=== PATIENT | female | born 1960 | race Caucasian/White ===

== ENCOUNTER → 2016-10-26 | Outpatient (CLI) | payer OTHER ==
[~2016-10-26] VITALS: Ht 167.6 cm; Wt 98.3 kg
[~2016-10-26] MED LIST: ALEVE220 MG PO; AMITRIPTYLINE H10 M1 PO; AMITRIPTYLINE H50 M2 PO; ANCEF 1GM1 GM/50 M1 IV; ARTHRITIS PAIN650 M2 PO; CALTRATE 600 +1 EACH PO; CELEBREX; CYCLOBENZAPRINE10 MG PO; DESYREL50 MG PO; ENDOCET 10-3251 EACH PO; FENTANYL PA25 MCG/HR TP; FENTANYL PA50 MCG/HR TP; FLEXERIL PO; HYDROCODON-ACE1 EACH PO; IBUPROFEN 200200 M1 PO; LOVENOX; MAXALT MLT ODT10 MG PO; MS CONTIN 30 MG30 M1 PO; MS CONTIN15 MG PO; MS CONTIN30 MG PO; MULTIVITAMINS1 EAC7 PO; NABUMETONE 500500 M1 PO; OXYCODONE-ACET1 EAC2 PO; OXYCODONE-APAP1 EAC6 PO; OXYCONTIN10 MG PO; PERCOCET 10-321 EACH PO; PERCOCET 5-3251 EACH PO; PERCOCET 7.5-31 EACH PO; PERCOCET PO; PHENERGAN 25 MG25 M1 PO; RELAFEN500 MG PO; ROXICODONE5 MG PO; TYLENOL EX-STR500 M2 PO; VITAMIN D 5050000 I1 PO; XANAX 0.25 MG0.25 MG PO
--- NOTE | ~2016-10-26 | HPC ---
[facility] [place] [address] PAIN MANAGEMENT CONSULTATION Name: LEELEE ANGLIN [id number] Admission: 10/26/16 Attend Phys: Raj Beasley DO Discharge: Date of : 58 Report #: [id number] THIS REPORT FOR: //name// CC: FAM physician/PCP Raj Horowitz DO DATE OF SERVICE: 10/26/2016 REFERRING PHYSICIAN: Sarah Horowitz DO. CHIEF COMPLAINT: Neck pain, head pain, new onset intense left intracranial head pain. HISTORY OF PRESENT ILLNESS: As you know, the patient is a 55-year-old female, who returns today in followup visit with continued cervicogenic headache, due to extensive cervical spondylosis, leading to third occipital neuralgia. The patient has peripheral nerve stimulators in place which have been providing improvement in symptoms. This in conjunction with medication management has been relatively successful in alleviating the majority of the patient's pain. The patient states, over the past couple of weeks, she is beginning to experience increasing head pain. This head pain is different than her typical head pain. It is deep and intracranial. She reports it behind the eye, and exacerbated with no activities. She has had no resolution of symptoms, and the pain has become so intense that she was actually heading to the Emergency Department today. She happened to have an appointment with us and came to our clinic instead. She is placing pain score today at "20/10". She denies any injury or trauma to her head that may have led to these symptoms. She has made today's appointment for medication management, but with his head pain, she is most concerned about this new onset. ALLERGIES: ZOLPIDEM. CURRENT MEDICATIONS: Percocet 7.5/325 four times a day p.r.n. pain, MS Contin 30 mg twice a day, amitriptyline 50 mg p.o. at bedtime, multivitamin 1 tab per day, Tylenol Arthritis 650 mg 2 tabs 3 times a day. SOCIAL HISTORY: The patient denies tobacco, alcohol, IV or illicit drug use. She is working, not receiving workmen's compensation. She is unaccompanied today. IMAGING: No new imaging available. PHYSICAL EXAMINATION: VITAL SIGNS: Blood pressure 112/72, pulse 79, respiratory rate 16, unlabored. The patient is 100% on room air, height 5 feet 6 inches tall, weight 216 pounds, [facility] [address] [place] [address] PAIN MANAGEMENT CONSULTATION Name: LEELEE ANGLIN [id number] Admission: 10/26/16 Attend Phys: Raj Beasley DO Discharge: Date of : 58 Report #: [id number] BMI calculated 35. GENERAL: Well-developed, well-nourished, and well-hydrated. Morbidly obese 55-year-old female, appears her stated age. She is in acute distress. Placing pain score 20/10. HEENT: Normocephalic and atraumatic. Pupils are equal, round, and reactive to light. Extraocular muscles are intact. Speech is fluent. NEUROLOGIC: Cranial nerves 2-12 are grossly intact. LUNGS: Clear. No wheezing, rhonchi, or rales. CARDIOVASCULAR: Regular. No appreciable gallop or rub. ABDOMEN: Soft, obese, nontender, and nondistended. EXTREMITIES: Show no clubbing, no cyanosis, no edema. MUSCULOSKELETAL: Palpatory tenderness is noted over the paraspinal musculature of the cervical spine, unchanged from previous evaluations. Cervical provocation testing causes intensification of pain in typical distribution. No change in her new onset of pain, deep left intracranial area. Cervical provocation testing with extension, rotation, and lateral flexion is met with decreasing mobility. There is well healed surgical scar is noted. ASSESSMENT: 1. Bilateral third occipital neuralgia. 2. Cervical facet syndrome. 3. Cervicalgia. 4. Cervicogenic headache. 5. New onset intracranial head pain. 6. Chronic intractable pain. PLAN: 1. The patient returns today in followup visit with increasing head pain located left side, retroorbital, deep in the head in sensation. The patient has known third occipital neuralgia, secondary to cervicogenic headaches and cervical spondylosis. Though this symptomology is different than her typical head pain, it is not superficial. It is very deep in the head. The patient indicates pain has become worse. It is not improving. Her symptoms are becoming profound enough that she was heading to the Emergency Department, but deviated to our office as she did have an appointment with us today. Given the findings in her report, I do feel that further evaluation is necessary. I recommended the patient to undergo a CT of the head without contrast. I am concerned about potential intracranial issues. The symptoms she is experiencing do not correlate with her typical third occipital neuralgia and cervicogenic headache. The patient will undergo CT examination without contrast, as quickly as possible. We will review the findings once they are available. I did advise the patient that if she undergoes the CT today, and continues to have increasing pain, but has not heard back from our clinic, and pain does not resolve, she is to take herself to the Emergency Department here at [facility] where they can evaluate more fully and review the CT in its entirety. 2. I have written the patient's typical pain medications today. The following [facility] [place] [address] [place] [address] PAIN MANAGEMENT CONSULTATION Name: LEELEE ANGLIN Room #: REG [facility]#: [id number] Admission: 10/26/16 Attend Phys: Raj Beasley DO Discharge: Date of : 58 Report #: [id number] was written for 3 months prescriptions. 3. The patient was provided a prescription of MS Contin 30 mg dose one tab p.o. b.i.d. I have given the patient #60, releases of today, 4 weeks from today, and 8 weeks from today. 4. The patient was provided a prescription of amitriptyline 50 mg dose, 2 tabs p.o. at bedtime. I have given her #60 with 2 refills. 5. The patient was provided a prescription of oxycodone/acetaminophen 7.5/325, one tab p.o. q. 6 hours p.r.n. for pain, #120 releases of today, 4 weeks from today, and 8 weeks from today. 6. The patient can contact our clinic later today for findings from the CT examination. Again, if the patient does not notice resolution of symptoms or her pain becomes worse or if she begins to have any potential neurologic deficits, she is to take herself to the Emergency Department immediately for further evaluation. 7. I have discussed with the patient. There is a possibility that she will need adjustment on her peripheral nerve stimulator. She will need to contact Dr. Viktor Rosario's office to establish an appointment, so that they can have adjustments made with the [employer] representatives. By: [id number] Raj Beasley DO /nt
[2016-10-26 11:04] VITALS: BP 112/72
== END | disposition home or self-care (01) ==
LOC: CAT 07:06 → PAIN 07:06
DX: M54.81 Occipital neuralgia (principal); M53.82 Other specified dorsopathies, cervical region; G44.89 Other headache syndrome; G89.29 Other chronic pain

== ENCOUNTER → 2017-01-25 | Outpatient (CLI) | payer OTHER ==
[~2017-01-25] VITALS: Ht 167.6 cm; Wt 95.7 kg
[2017-01-25 08:43] VITALS: BP 125/72
== END | disposition home or self-care (01) ==
LOC: PAIN 07:19
DX: M54.81 Occipital neuralgia (principal); M53.82 Other specified dorsopathies, cervical region; M54.2 Cervicalgia; G44.89 Other headache syndrome; G44.209 Tension-type headache, unspecified, not intractable; F11.20 Opioid dependence, uncomplicated; G89.29 Other chronic pain; Z88.8 Allergy status to other drugs, medicaments and biological substances; Z98.890 Other specified postprocedural states

== ENCOUNTER → 2017-04-26 | Outpatient (CLI) | payer OTHER ==
[~2017-04-26] VITALS: Ht 167.6 cm; Wt 94.3 kg
--- NOTE | ~2017-04-26 | HPC ---
[facility] [address] [place] [address] PAIN MANAGEMENT CONSULTATION Name: LEELEE ANGLIN Room #: REG [facility].#: [id number] Admission: 04/26/17 Attend Phys: Raj Beasley DO Discharge: Date of : 58 Report #: [id number] THIS REPORT FOR: //name// CC: [facility] physician/PCP Raj DUENAS DATE OF SERVICE: 04/26/2017 CHIEF COMPLAINT: Head pain and neck pain. HISTORY OF PRESENT ILLNESS: As you know, the patient is a 56-year-old female who returns today in followup visit for medication management to address her cervicalgia, cervicogenic headache, tension headache and third occipital neuralgia. The patient states medications are working beneficially despite the fact that she is providing a pain score today of 7/10; states pain is stabbing, sharp and tender; exacerbated with loud noises; lights and movement. She returns today requesting refill on medications at current dosing, denying side effects with their use. ALLERGIES: ZOLPIDEM. CURRENT MEDICATIONS: Percocet 7.5/325 four times a day, MS Contin 15 mg 3 times a day, amitriptyline 100 mg p.o. at bedtime, multivitamin 1 tab per day, Tylenol Arthritis 650 mg 2 tabs 3 times a day. SOCIAL HISTORY: The patient denies tobacco, alcohol, IV or illicit drug use. She is recently retired. She is unaccompanied today. IMAGING: No new imaging available. PHYSICAL EXAMINATION: VITAL SIGNS: Blood pressure 125/72, pulse 65, respiratory rate 14 and unlabored. The patient is 98% on room air. Height 5 feet 6 inches tall, weight 211 pounds, BMI calculated 34.1. GENERAL: Well-developed, well-nourished, well-hydrated exogenously obese 56-year-old female appearing stated age, placing current pain score 7/10. HEENT: Normocephalic, atraumatic. Pupils equal, round, reactive to light. Extraocular muscles are intact. Speech is fluent. EXTREMITIES: Show no clubbing, no cyanosis, no edema. MUSCULOSKELETAL: Tenderness to palpation is again noted over the paraspinal musculature of cervical spine, well-healed surgical scars. There is palpatory tenderness over what appears to be one of the leads on the right that is palpable through the skin of the cervical musculature. Cervical provocation is met with increasing pain. [address] [address] PAIN MANAGEMENT CONSULTATION Name: LEELEE ANGLIN Room #: REG CLI [facility]#: [id number] Admission: 04/26/17 Attend Phys: Raj Beasley DO Discharge: Date of : 58 Report #: [id number] ASSESSMENT: 1. Bilateral third occipital neuralgia. 2. Cervical facet syndrome. 3. Cervicalgia. 4. Cervicogenic headache. 5. Chronic intractable pain. PLAN: 1. The patient returns today in followup visit for refills of medications. She does relay information about a misplaced prescription from our last prescription released at 8 weeks from prescriptions provided at our appointment of 01/25/2017. The patient subsequently found these prescriptions and ultimately filled the medication. I have advised the patient that with any prescription she needs to safeguard the prescriptions as well as the medications from lost or being stolen. It is the patient's responsibility to monitor these controlled substances once they have been filled, but also to monitor the prescriptions themselves as they can be filled by nefarious individuals and can be diverted for illegal use. The patient states she understands and has made a contingency plan at home to secure the prescriptions in a very specific place. 2. The patient was provided today prescription of MS Contin 15 mg 3 times a day. I have given the patient #90, releases of today, 4 weeks from today, 8 weeks from today. This will be the baseline medication. Again, the patient is advised to safeguard the prescriptions and the medications once they have been obtained. 3. The patient was provided a prescription of Percocet 7.5/325 one tab every 6 hours p.r.n. for pain, #120, releases of today, 4 weeks from today, 8 weeks from today, 3 months' worth of medication. Again, the patient was advised to safeguard her prescriptions and the medications once they have been obtained. 4. The patient was provided a prescription of amitriptyline 50 mg dose 2 tabs p.o. at bedtime, #60, two refills, 3 months' worth of medication. 5. We will see the patient back in followup visit in 3 months for medication management, earlier if interventional treatments are necessary. By: [id number] Raj Beasley DO /zack
[2017-04-26 08:12] VITALS: BP 135/91
== END | disposition home or self-care (01) ==
LOC: PAIN 06:51
DX: M54.81 Occipital neuralgia (principal); M53.1 Cervicobrachial syndrome; M54.2 Cervicalgia; G89.29 Other chronic pain; Z68.34 Body mass index [BMI] 34.0-34.9, adult; Z88.8 Allergy status to other drugs, medicaments and biological substances

== ENCOUNTER → 2017-07-25 | Outpatient (CLI) | payer OTHER ==
[~2017-07-25] VITALS: Ht 167.6 cm; Wt 91.4 kg
--- NOTE | ~2017-07-25 | HPC ---
[facility] [address] [address] PAIN MANAGEMENT CONSULTATION Name: LEELEE ANGLIN Room #: REG [facility]..#: [id number] Admission: 07/25/17 Attend Phys: Raj Beasley DO Discharge: Date of : 58 Report #: [id number] THIS REPORT FOR: //name// CC: FAM physician/PCP Raj Horowitz DO DATE OF SERVICE: 07/25/2017 REFERRING PHYSICIAN: Sarah Horowitz D.O. CHIEF COMPLAINT: Head pain and neck pain. HISTORY OF PRESENT ILLNESS: As you know, the patient is a 56-year-old female who returns today in followup visit for continued medication management. She feels combinations of medications along with a peripheral nerve stimulators providing some improvement in symptoms. Unfortunately, the patient is now experiencing trouble with her peripheral nerve stimulator battery. She is not receiving response stating the battery is depleted. She is also experiencing left upper extremity pain with paresthesias radiating all the way into the hand. Pain begins in the neck, radiates to the shoulder and then down into the hand. She reports no injury or trauma that may have led to this symptom development. She returns to discuss options for treatment. ALLERGIES: ZOLPIDEM. CURRENT MEDICATIONS: Percocet 7.5/325 four times a day p.r.n., MS Contin 15 mg 3 times a day, amitriptyline 100 mg once a day, multivitamin 1 tab per day and Tylenol Arthritis 650 mg 2 tabs 3 times a day. SOCIAL HISTORY: The patient denies tobacco, alcohol, IV or illicit drug use. She is retired. She is unaccompanied today. IMAGING DATA: No new imaging available. PHYSICAL EXAMINATION: VITAL SIGNS: Blood pressure 108/64, pulse 72, respiratory rate 14 and unlabored. The patient is 97% on room air. Height 5 feet 6 inches tall, weight 201.4 pounds and BMI calculated 32.5. GENERAL: Well-developed, well-nourished, well-hydrated 56-year-old female appearing her stated age. She is in mild distress secondary to pain, placing current pain score at 6/10. HEENT: Normocephalic and atraumatic. Pupils equal, round and reactive to light. Extraocular muscles are intact. NEUROLOGICAL: Speech is fluent. The patient deemed a good historian. EXTREMITIES: Show no clubbing, no cyanosis and no edema. [address] [address] PAIN MANAGEMENT CONSULTATION Name: LEELEE ANGLIN [facility] [id number] Admission: 07/25/17 Attend Phys: Raj Beasley DO Discharge: Date of : 58 Report #: [id number] MUSCULOSKELETAL: The patient does display a positive Spurling's test on the left, negative right. There is palpatory tenderness over the paraspinal musculature cervical spine. No spinous process tenderness. Upper extremity strength appears equal and symmetrical, 5/5. She is intact to light touch from C5 to T1 dermatomes with mild loss of tactile sensation and per the patient's report in the distal portions of the C6 and C7 dermatomal distribution on the left compared to the right. ASSESSMENT: 1. Cervical radiculopathy. 2. Bilateral third occipital neuralgia. 3. Cervical facet syndrome. 4. Cervicalgia. 5. Cervicogenic headache. 6. Chronic intractable pain. PLAN: 1. The patient returns today in followup visit reporting what appears to be cervical radiculopathy involving the low neck, left upper extremity all the way into the hand on what appears to be C6 dermatome possibly even additional C7 dermatome. The patient does have a well known cervical facet arthropathy that is likely leading to either neural foraminal stenosis or central canal stenosis and needs to be further evaluated. We discussed that the patient the options for treatment for cervical radiculopathy. These would include physical therapy, stretching exercise and core strengthening. We discussed medication management for which the patient is currently receiving. We discussed epidural injections and surgical options. After reviewing risks and benefits of all proposed treatment options, the patient chose to move forward with imaging to determine the possible pathology and what then can be determined it is a more directed treatment course. 2. The patient was sent for CT examination of the cervical region. The patient will undergo the CT examination as quickly as possible. We will review the findings once they are available. The patient can contact the clinic about the findings at her earliest convenience. 3. The patient has reported issues with her peripheral stimulator battery. I have advised the patient to contact the [employer] inside outside sales representative to have the device evaluated. If a battery is depleted, she will need to follow up with Dr. Rosario for exchange of battery. The patient will contact the inside outside sales representative immediately and follow up with Dr. Rosario as necessary. 4. The patient was provided prescription of amitriptyline 50 mg dose 2 tabs p.o. at bedtime, #60, two refills. 5. The patient was provided a prescription of MS Contin 15 mg dose 1 tab p.o. t.i.d., #90, 2 refills. 6. The patient was provided prescription of Percocet 7.5/325 one tab every 6 hours p.r.n. for pain, #120, releases of today, 4 weeks from today, 8 weeks from today, 3 months' worth of medication. [place] [address] [place] [address] PAIN MANAGEMENT CONSULTATION Name: LEELEE ANGLIN Room #: REG [facility]#: [id number] Admission: 07/25/17 Attend Phys: Raj Beasley DO Discharge: Date of : 58 Report #: [id number] 7. The patient and I discussed the need to safeguard medication. She is not having any side effects to medication, does feel they are beneficial. She needs to monitor medications carefully as these medications do have side effects that can occur without warning. 8. We will see the patient back in followup visit 3 months from today for medication management. She can contact our clinic about the findings from the CT examination and the options for treatment. <ELECTRONICALLY SIGNED> By: Raj Beasley DO 08/08/17 0900 1009 [id number] Raj Beasley DO /nt
[2017-07-25 08:14] VITALS: BP 108/64
== END ==
LOC: PAIN 06:46
DX: M54.12 Radiculopathy, cervical region (principal); G89.29 Other chronic pain; M54.81 Occipital neuralgia; M53.82 Other specified dorsopathies, cervical region

== ENCOUNTER → 2017-10-10 | Outpatient (CLI) | payer OTHER ==
[~2017-10-10] VITALS: Ht 167.6 cm; Wt 95.3 kg
--- NOTE | ~2017-10-10 | HPC ---
[facility] [place] [address] PAIN MANAGEMENT CONSULTATION Name: LEELEE ANGLIN Room #: REG [facility].#: [id number] Admission: 10/10/17 Attend Phys: Raj Beasley DO Discharge: Date of : 58 Report #: [id number] THIS REPORT FOR: //name// CC: FAM physician/PCP Raj Horowitz DO DATE OF SERVICE: 10/10/2017 REFERRING PHYSICIAN: Sarah Horowitz DO CHIEF COMPLAINT: Head and neck pain. HISTORY OF PRESENT ILLNESS: As you know, the patient is a very pleasant 56-year-old female who returns today in followup visit for medication management. The patient indicates that she has plans to undergo revision of her peripheral nerve stimulator for her ongoing head and neck pain. The patient is currently attempting to make an appointment with her neurosurgeon for adjustments in the device itself and the possibility of changing out the battery and pulse generator, which appears to be malfunctioning. She returns today requesting refill on medications. She is placing pain score today 5-6/10. States the light, loud noises, bending over, straining, answering the phone or turning her head the wrong way exacerbates symptoms. Medications, relaxation, environment changes, SCS and peripheral nerve stimulator seems to be working well. She returns today for medication management. ALLERGIES: ZOLPIDEM. CURRENT MEDICATIONS: Percocet 7.5/325 four times a day as needed for pain control, MS Contin 15 mg 3 times a day, amitriptyline 100 mg once a day, multivitamin 1 tab per day, Tylenol Arthritis 650 mg 2 tabs 3 times a day. SOCIAL HISTORY: The patient denies tobacco, alcohol, IV or illicit drug use. She was retired, but now has returned to the workforce. She is unaccompanied today. IMAGING: No new imaging available. PHYSICAL EXAMINATION: VITAL SIGNS: Blood pressure 124/76, pulse 62, respiratory rate 16, unlabored. The patient is 98% on room air. Height 5 feet 6 inches tall, weight 210 pounds, BMI calculated 33.9. GENERAL: Well-developed, well-nourished, well-hydrated 56-year-old female, appears stated age, placing current pain score 5-6/10. HEENT: Normocephalic, atraumatic. Pupils equal, round, reactive to light. EXTREMITIES: Show no clubbing, no cyanosis, no edema. [facility] [address] [place] [address] PAIN MANAGEMENT CONSULTATION Name: LEELEE ANGLIN [facility] [id number] Admission: 10/10/17 Attend Phys: Raj Beasley DO Discharge: Date of : 58 Report #: [id number] MUSCULOSKELETAL: There is some palpatory tenderness noted over the paraspinal musculature of the cervical spine. No spinous process tenderness. Positive Spurling's test on the left, negative right. There is reduction in motion of the cervical spine secondary to pain. She appears to be intact to cranial nerves 1-12. ASSESSMENT: 1. Cervical radiculopathy. 2. Third occipital neuralgia. 3. Cervical facet syndrome. 4. Cervicalgia. 5. Cervicogenic headache. 6. Chronic intractable pain. PLAN: 1. The patient returns today in followup visit indicating that she is in the process of returning to see Dr. Viktor Rosario. Apparently, a revision has to be made to release the pulse generator/battery pack for the peripheral nerve stimulator. There is also a possibility there needs to be some adjustments of the leads themselves. The patient is making an appointment with Dr. Rosario's office as quickly as possible. I did advise the patient if she needs assistance in being seen more rapidly, we will be more than willing to assess by contacting their clinic to see if we could facilitate a more rapid return for evaluation. The patient does have a [employer] device in, which we do not monitor or utilize. She would need to see Dr. Rosario for adjustments. 2. The patient has requested a refill on medications. She states medications are working beneficially despite the fact that she is providing a 5-6/10 pain level today. She has requested refills to be provided in hopes of continuation of pain control as we continue to adjust her peripheral nerve stimulator for better pain control. 3. The patient was provided a prescription of MS Contin 15 mg dose, 1 tab p.o. t.i.d. I have given the patient #90, releases of today, 4 weeks from today, 8 weeks from today. Total morphine equivalents 45. 4. The patient was provided a prescription of Percocet 7.5/325 one tab every 6 hours p.r.n. for pain. I have given the patient #120. Advised the patient to take the medication only as directed. She is not to take it more than 4 times a day. She was given prescriptions for 3 months. This use of medication calculates out to 45 morphine equivalents a day. 5. The patient was provided prescription of Elavil 50 mg dose 2 tabs p.o. at bedtime, #60, two refills. This is 3 months' worth of medication. 6. We will see the patient back in followup visit in 3 months. Hopefully, at that time, she will have her pulse generator replaced or adjusted and that the leads that she has in place are working more effectively and we can then begin reducing her reliance on opioids. I did discuss with the patient the recent CDC recommendations to begin the reduction from 90 morphine equivalents to the possibility of as low as 50 morphine equivalents. Guidelines have been [facility] [address] [place] [address] PAIN MANAGEMENT CONSULTATION Name: LEELEE ANGLIN Room #: REG [facility]#: [id number] Admission: 10/10/17 Attend Phys: Raj Beasley DO Discharge: Date of : 58 Report #: [id number] changed, but this is the report that we will be reducing by almost 50% at our next visit. <ELECTRONICALLY SIGNED> By: Raj Beasley DO 10/11/17 0747 [id number] Raj Beasley DO /nt
[2017-10-10 08:32] VITALS: BP 124/76
== END ==
LOC: PAIN 06:31
DX: M54.12 Radiculopathy, cervical region (principal); G89.4 Chronic pain syndrome; M54.81 Occipital neuralgia; R51 Headache

== ENCOUNTER → 2018-01-02 | Outpatient (CLI) | payer OTHER ==
[~2018-01-02] VITALS: Ht 167.6 cm; Wt 98.0 kg
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
[2018-01-02 08:14] VITALS: BP 144/93
== END ==
LOC: PAIN 07:28
DX: M54.2 Cervicalgia (principal); R51 Headache; G89.4 Chronic pain syndrome; M79.2 Neuralgia and neuritis, unspecified; Z79.899 Other long term (current) drug therapy

== ENCOUNTER → 2018-06-27 | Outpatient (CLI) | payer OTHER ==
[~2018-06-27] VITALS: Ht 167.6 cm; Wt 101.0 kg
[~2018-06-27] MED LIST changes: +CYMBALTA30 MG PO
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
[2018-06-27 08:14] VITALS: BP 129/86
== END | disposition home or self-care (01) ==
LOC: PAIN 06:56
DX: M79.18 Myalgia, other site (principal); M54.12 Radiculopathy, cervical region; M54.81 Occipital neuralgia; G89.29 Other chronic pain; Z88.8 Allergy status to other drugs, medicaments and biological substances; Z79.899 Other long term (current) drug therapy

== ENCOUNTER → 2018-09-18 | Outpatient (CLI) | payer OTHER ==
[~2018-09-18] VITALS: Ht 167.6 cm; Wt 103.1 kg
--- NOTE | ~2018-09-18 | HPC ---
[facility] [address] [place] [address] PAIN MANAGEMENT CONSULTATION Name: LEELEE ANGLIN Room #: REG [facility] MBrittany.#: [id number] Admission: 09/18/18 ������������������ Attend Phys: Raj Beasley DO Discharge: ������������������ Date of : 58 Report #: [id number] THIS REPORT FOR: //name// CC: Raj Horowitz DATE OF SERVICE: 09/18/2018 CHIEF COMPLAINT: Neck pain, bilateral head pain secondary to cervical spondylosis. HISTORY OF PRESENT ILLNESS: As you know, the patient is a very pleasant 57-year-old female returning in followup visit requesting medication management for ongoing pain. She is placing pain today at 8-9/10. She indicates that they have made adjustments in her peripheral nerve stimulator to address the cervicalgia and head pain that she is experiencing, but has not noticed much in the way of improvement. She is considering to look toward surgical options to address ongoing cervical spondylosis and pain. She returns today in followup visit requesting medication management for her ongoing symptoms. She takes MS Contin 15 mg 3 times a day and utilizes Percocet 7.5/325 up to 4 times a day for pain control, this in conjunction with amitriptyline and Cymbalta. She returns stating no side effects to medication, requesting refill on the therapy. ALLERGIES: ZOLPIDEM. CURRENT MEDICATIONS: Percocet 7.5/325 one tab every 6 hours p.r.n. for pain, MS Contin 15 mg 3 times a day, amitriptyline 100 mg p.o. at bedtime, Cymbalta 60 mg p.o. at bedtime, acetaminophen 650 mg twice a day, multivitamin 1 tab per day. SOCIAL HISTORY: The patient denies tobacco, alcohol, IV or illicit drug use. She is unaccompanied today. IMAGING: No new imaging available. PHYSICAL EXAMINATION: VITAL SIGNS: Blood pressure 120/79, pulse is 62, respiratory rate 16 and unlabored. The patient is 99% on room air. Height 5 feet 6 inches tall, weight 227.2 pounds, BMI calculated at 36.7. GENERAL: Well-developed, well-nourished, well-hydrated, morbidly obese 57-year-old female appearing stated age, placing current pain score at 8-9/10. HEENT: Normocephalic, atraumatic. Pupils equal, round, reactive to light. Extraocular muscles are intact. EXTREMITIES: Show no clubbing, no cyanosis, no edema. MUSCULOSKELETAL: There is palpatory tenderness over the paraspinal musculature of the cervical spine, no spinous process tenderness. [place] [address] PAIN MANAGEMENT CONSULTATION Name: LEELEE ANGLIN Room #: REG [facility]#: [id number] Admission: 09/18/18 ������������������ Attend Phys: Raj Beasley DO Discharge: ������������������ Date of : 58 Report #: [id number] noted, they are well healed. Deep palpation of the upper cervical area causes an increase in overall pain and multiple tender points, no specific trigger points. Muscle spasming is noted with deep palpation. Cervical provocation testing is severely restricted with pain exacerbation with any movement. ASSESSMENT: 1. Chronic cervical radiculopathy. 2. Third occipital neuralgia. 3. Cervical facet syndrome. 4. Cervical spondylosis with radiculopathy. 5. Cervicogenic headaches. 6. Myofascial pain. 7. Chronic intractable pain. PLAN: 1. The patient returns today in followup visit indicating that they have recently made adjustments in her peripheral nerve stimulator to increase the strength of the signal over the patient's ongoing pain. Unfortunately, this has not led to much in the way of improvement in symptoms. She has plans to follow up with the implanting physician in the very near future. She returns today requesting medication management. She feels medications are working beneficially despite the fact that her pain score today is what it was when we initially met her. She wishes to continue medication at this time. She is going to discuss with her implanting physician for the peripheral nerve stimulator, about the possibility of undergoing surgical fusion of the neck to decrease mobility and thus improve pain. 2. We reviewed the fact that opiate medications are being used to provide analgesia adequate to support activities of daily living, not attempting to achieve a specific pain score on the 0-10 Visual Analog Scale. The current opiate medications are providing sufficient analgesia to allow the patient to participate in activities of daily living. The patient is not exhibiting any aberrant behavior suggestive of drug diversion. The patient is not having any adverse reactions to medications. The patient is not suffering from daytime somnolence or mental acuity changes. The patient is managing opiate-induced constipation with appropriate [id number]-[id number] agents and dietary considerations. The patient was counseled on concern for caution with operating a motor vehicle while using opiate medications. A physical exam was performed and the patient's functional status was evaluated. All patients with back pain were advised against the bed rest greater than 4 days and were advised to return to normal activities. Pain score assessment was noted and the treatment plan was reviewed with the patient. All current medications, both prescribed and OTC were reviewed and reconciled on the electronic medical record. Tobacco screening was accomplished and smoking cessation was advised when indicated. BMI was noted and diet/exercise [address] [address] PAIN MANAGEMENT CONSULTATION Name: LEELEE ANGLIN Room #: REG [facility].#: [id number] Admission: 09/18/18 ������������������ Attend Phys: Raj Beasley DO Discharge: ������������������ Date of : 58 Report #: [id number] modification was recommended for all patients following outside normal parameters. I reviewed with the patient today their responsibilities to safeguard prescription medications, reviewed their responsibility to utilize medications only as prescribed by the physician. They are to seek and receive pain medications only from 1 physician group ( [facility]). They are to use 1 pharmacy and keep the clinic informed if they change pharmacies. Their responsibilities include making followup visits in a timely fashion and to avoid abrupt discontinuation of medication usage. Their responsibilities further include bringing their medications (bottles from the pharmacy with residual pills) to the visit for possible confirmation of pill counts and the patient understands it is their responsibility to submit to random drug screens to ensure both that the medications prescribed are present, and that no other controlled substances are present. All prescriptions provided today were generated electronically. 3. The patient was provided prescription of amitriptyline 50 mg dose 2 tabs p.o. at bedtime, #60, 2 refills. 4. The patient was provided a prescription of Cymbalta 30 mg dose 2 tabs p.o. at bedtime, #60, 2 refills. 5. The patient was provided a prescription of MS Contin 15 mg dose 1 tab p.o. t.i.d., #90, releasing today, 4 weeks from today, 8 weeks from today, 3 months' worth of medication. 6. The patient was provided prescription of Percocet 7.5/325 one tab p.o. q. 6 hours p.r.n. for pain, #120, releasing today, 4 weeks from today, 8 weeks from today, 3 months' worth of medication. 7. We will see the patient back in followup visit in 3 months for medication management. She may return earlier if adjustments need to be addressed. ��������������������������������������������� ���������������������������������������� By: ��������������������������������������������� [id number] Raj Beasley DO /nt
[2018-09-18 08:12] VITALS: BP 128/79
--- NOTE | 2018-09-18 08:33 | NUR ---
Pain Clinic Assessment: 1. History of Osteoarthritis: hands History of Rheumatoid Arthritis: Not Applicable 2. Height: 5 ft. 6 in. 167.6 cm. Weight: 227.2 lb. oz. 103.057 kg. Patient's BMI: 36.7 3. Vital Signs: BP: 128/79 Pulse: 62 Resp: 16 Temp: 02 Sat: 99 ECG Mon: 4. Pain Intensity: 8-9 5. Fall Risk: Dizziness: N Needs help standing or walking: N Fallen in the last 3 months: N Fall risk comments: 6. Patient on Blood Thinner: None 7. History of Hypertension: N 8. Opioid Therapy greater than 6 weeks: Y Opiate Contract Signed: 05/10/15 9. Risk Assessment Tool Provided: LOW RISK 0/0 10. Functional Assessment Tool: 11. Recreational Drug Use: Never Drug Type: Tobacco Use: Never Smoker Tobacco Type: Amount or Packs/day: How Many Years: Alcohol Use: No Frequency: Quant:
== END ==
LOC: PAIN 06:38
DX: M47.22 Other spondylosis with radiculopathy, cervical region (principal); M79.18 Myalgia, other site; M54.81 Occipital neuralgia; G89.4 Chronic pain syndrome; R51 Headache; Z79.899 Other long term (current) drug therapy

== ENCOUNTER → 2018-11-27 | Outpatient (CLI) | payer OTHER ==
[~2018-11-27] VITALS: Ht 167.6 cm; Wt 98.9 kg
[~2018-11-27] MED LIST changes: +CYMBALTA60 MG PO
[2018-11-27 13:20] VITALS: BP 130/78
--- NOTE | 2018-11-27 13:24 | NUR ---
Pain Clinic Assessment: 1. History of Osteoarthritis: hands History of Rheumatoid Arthritis: Not Applicable 2. Height: 5 ft. 6 in. 167.6 cm. Weight: 218.0 lb. oz. 98.884 kg. Patient's BMI: 35.2 3. Vital Signs: BP: 130/78 Pulse: 73 Resp: 16 Temp: 02 Sat: 95 ECG Mon: 4. Pain Intensity: 9 5. Fall Risk: Dizziness: N Needs help standing or walking: N Fallen in the last 3 months: N Fall risk comments: 6. Patient on Blood Thinner: None 7. History of Hypertension: N 8. Opioid Therapy greater than 6 weeks: Y Opiate Contract Signed: 05/10/15 9. Risk Assessment Tool Provided: LOW RISK 0/0 10. Functional Assessment Tool: 11. Recreational Drug Use: Never Drug Type: Tobacco Use: Never Smoker Tobacco Type: Amount or Packs/day: How Many Years: Alcohol Use: No Frequency: Quant:
--- NOTE | 2018-12-04 08:15 | HPC ---
[facility] [place] [address] PAIN MANAGEMENT CONSULTATION Name: LEELEE ANGLIN Room #: REG [facility] [id number] Admission: 11/27/18 ������������������ Attend Phys: Raj Beasley DO Discharge: ������������������ Date of : 58 Report #: [id number] THIS REPORT FOR: //name// CC: Raj Horowitz DO DATE OF SERVICE: 11/27/2018 REFERRING PHYSICIAN: Sarah Horowitz DO. CHIEF COMPLAINT: Neck pain, head pain, upper back pain. HISTORY OF PRESENT ILLNESS: As you know, the patient is a very pleasant 58-year-old female who returns today in followup visit indicating that her peripheral nerve stimulating device has failed. Apparently, the battery has become de-charged and is no longer working. The patient will need to undergo revision of this device in the very near future. She has contacted the surgeon who implanted the device and they are in the process of achieving approvals to undergo replacement of the battery pack. Interestingly, the battery pack only lasted about 3 years well below it is reported 5-year minimum. She returns indicating pain that appears to be cervical in origin. She does have a history of chronic cervical radiculopathy and has requested a cervical epidural injection. She indicates pain level of 10/10 today. She does note significant improvement with the peripheral nerve stimulator, but again this is no longer functioning due to a depleted battery. She returns for an injection of the cervical area. ALLERGIES: ZOLPIDEM. CURRENT MEDICATIONS: Percocet, MS Contin, amitriptyline, Cymbalta, acetaminophen and multivitamin. SOCIAL HISTORY: The patient denies tobacco, IV or illicit drug use. Denies any chronic alcohol use. She is accompanied by her daughter who is present in room today. IMAGING: No new imaging available. PHYSICAL EXAMINATION: VITAL SIGNS: Blood pressure 130/78, pulse 73, respiratory rate 16 and unlabored. The patient is 95% on room air. Height 5 feet 6 inches tall, weight 218 pounds, BMI calculated 35.2. GENERAL: Well-developed, well-nourished, well-hydrated, exogenously obese 58-year-old female, appearing stated age. Pain is rated anywhere from 9-10/10. HEENT: Normocephalic, atraumatic. Pupils equal, round, reactive to light. [address] [address] PAIN MANAGEMENT CONSULTATION Name: LEELEE ANGLIN Room #: REG JUSTO Mona#: [id number] Admission: 11/27/18 ������������������ Attend Phys: Raj Beasley DO Discharge: ������������������ Date of : 58 Report #: [id number] Extraocular muscles are intact. Speech fluent. EXTREMITIES: Show no clubbing, no cyanosis, and no edema. MUSCULOSKELETAL: There is palpatory tenderness noted over the paraspinal musculature of the cervical region. No spinous process tenderness. Surgical scars are noted and are well-healed in the cervical spine. Cervical provocation testing is met with increasing pain and severe restriction of motion. Spurling's test is equivocal. ASSESSMENT: 1. Cervical radiculopathy. 2. Third occipital neuralgia. 3. Cervical facet syndrome. 4. Cervical spondylosis with radiculopathy. 5. Cervicogenic headaches. 6. Myofascial pain. 7. Chronic intractable pain. PLAN: 1. The patient returns today in followup visit indicating worsening of symptoms over the last couple of days as her peripheral nerve stimulating device is no longer functioning. Apparently, the battery is depleted. This was depleted in less than 3 years, which is well below the reported 5-year time frame with these primary battery cells. I have discussed this with the patient today and recommend that she contact the device underwriting sales representative as this does not appear to have provided the long-term benefit she should have seen nor has the battery lasted as long as reported that it should. She will be following up with her device underwriting sales representative in regards to this failure. 2. We have taken the liberty of contacting Dr. Rosario's office, the surgeon who installed the peripheral nerve stimulating device. We have gained approval through their organization to have the patient undergo a cervical epidural injection. They have indicated that there are no concerns of steroid exposure prior to surgical revision to address the patient's peripheral nerve stimulating device. We confirmed this 2 different times. We have then consented the patient to undergo the cervical epidural injection. 3. We have obtained authorization from the patient's third democrat payer for the patient to undergo a cervical epidural injection. We discussed with the patient the risks and the benefits of the procedure itself. These risks include but are not necessarily limited to bleeding, bruising, infection, worsening pain, no relief of pain, also risk of temporary or permanent muscle weakness, temporary or permanent nerve damage, possible paralysis, post-dural puncture headache and . The patient states understood and wished to proceed. 4. No medication changes made at today's visit. The patient will continue current medical therapy as previously prescribed. 5. The patient will contact Dr. Rosario's office to obtain the timeframe for the revision of the battery running her peripheral nerve stimulator. There were plans to either undergo this in the next couple of days or over the next couple [address] [address] PAIN MANAGEMENT CONSULTATION Name: LEELEE ANGLIN Room #: REG CL Mariella#: [id number] Admission: 11/27/18 ������������������ Attend Phys: Raj Beasley DO Discharge: ������������������ Date of : 58 Report #: [id number]. PROCEDURE NOTE DESCRIPTION OF PROCEDURE: C7-T1 cervical epidural steroid injection under fluoroscopic guidance. After obtaining written consent, the patient was taken back to fluoroscopy suite, placed in prone position with separate pillows under chest and forehead to decrease cervical lordosis. Skin overlying the cervical area then prepped and draped in aseptic fashion. C7-T1 cervical interspace identified by AP fluoroscopy. Skin and subcutaneous tissue overlying target site of injection anesthetized with 3 mL of 1% lidocaine. A 20-gauge 3-1/2 inch Tuohy needle advanced under fluoroscopic guidance towards the epidural space using a midline approach. Epidural space identified using loss of resistance to air technique. After negative aspiration for heme or cerebrospinal fluid, 1 mL of Omnipaque injected. A cervical epidurogram confirmed using both AP and lateral fluoroscopy. After negative aspiration for heme or cerebrospinal fluid, 5 mL of a solution containing 2 mL 40 mg per mL, 80 mg total triamcinolone and 3 mL of lidocaine 1% injected slowly. Needle retracted approximately half way, flushed with 1 mL of 1% lidocaine and then removed. Sterile bandage placed over injection site. No new motor deficits present in the upper extremities following procedure. The patient tolerated the procedure well, carefully escorted to recovery room in stable condition. No apparent complication. After meeting discharge criteria, the patient discharged home. ��������������������������������������������� <ELECTRONICALLY SIGNED> ���������������������������������������� By: Raj Beasley DO ��������������������������������������������� 12/04/18 0815 [id number] Raj Beasley DO /nt
== END | disposition home or self-care (01) ==
LOC: PAIN 06:52
DX: M47.22 Other spondylosis with radiculopathy, cervical region (principal); G89.29 Other chronic pain; M54.81 Occipital neuralgia; G44.89 Other headache syndrome; M79.18 Myalgia, other site; M53.82 Other specified dorsopathies, cervical region; Z88.8 Allergy status to other drugs, medicaments and biological substances; Z79.899 Other long term (current) drug therapy; Z98.890 Other specified postprocedural states

== ENCOUNTER → 2018-12-11 | Outpatient (CLI) | payer OTHER ==
[~2018-12-11] VITALS: Ht 167.6 cm; Wt 98.0 kg
[2018-12-11 08:03] VITALS: BP 141/81
--- NOTE | 2018-12-11 08:08 | NUR ---
Pain Clinic Assessment: 1. History of Osteoarthritis: hands History of Rheumatoid Arthritis: Not Applicable 2. Height: 5 ft. 6 in. 167.6 cm. Weight: 216.0 lb. oz. 97.977 kg. Patient's BMI: 34.9 3. Vital Signs: BP: 141/81 Pulse: 57 Resp: 16 Temp: 02 Sat: 99 ECG Mon: 4. Pain Intensity: 7 5. Fall Risk: Dizziness: N Needs help standing or walking: N Fallen in the last 3 months: N Fall risk comments: 6. Patient on Blood Thinner: None 7. History of Hypertension: N 8. Opioid Therapy greater than 6 weeks: Y Opiate Contract Signed: 05/10/15 9. Risk Assessment Tool Provided: LOW RISK 0/0 10. Functional Assessment Tool: 11. Recreational Drug Use: Never Drug Type: Tobacco Use: Never Smoker Tobacco Type: Amount or Packs/day: How Many Years: Alcohol Use: No Frequency: Quant:
--- NOTE | 2018-12-13 15:12 | HPC ---
[facility] [place] [address] PAIN MANAGEMENT CONSULTATION Name: LEELEE ANGLIN Room #: REG [facility] Mariella.#: [id number] Admission: 12/11/18 ������������������ Attend Phys: Trinity Min Discharge: ������������������ Date of : 58 Report #: [id number] THIS REPORT FOR: //name// CC: Trinity Horowitz DATE OF SERVICE: 12/11/2018 CHIEF COMPLAINT: Neck pain, head pain and upper back pain. HISTORY OF PRESENT ILLNESS: As you know, this is a very pleasant 58-year-old female who returns to the pain clinic today for followup for her medications for her ongoing neck and head pain. She is trying to have her peripheral nerve stimulating device battery replaced. She tells me that she has not heard yet from Dr. Rosario on a date. She is hopeful that she will hear sometime this week when that surgery is set. In the meantime, she did have a steroid epidural injection last week; the cervical injection helped her at least 50% so far, especially on her left side. She is still having some pain on the right side of her neck and occipital areas. She rates her pain score as 7/10 today, mostly when she is turning her head wrong or the light or loud sounds. Medication as well as that injection and usually her spinal cord stimulator are very helpful. She denies any problems with constipation or daytime somnolence. She is wondering when she can have another cervical steroid epidural injection, but today she is also here for her medications. ALLERGIES: AMBIEN. MEDICATIONS: Percocet 7.5/325 q.i.d. p.r.n., morphine sulfate ER 2 tablets in the morning and 1 at bedtime, Cymbalta 60 mg daily, amitriptyline 100 mg at bedtime, multivitamin and Tylenol PM. PQRS: 1. The patient does have some osteoarthritic changes in her hands and neck. She denies rheumatoid arthritis. 2. Height is 5 feet 6 inches, weight is 216, BMI is 34. 3. Vital signs 141/81, pulse is 57, respirations 16, oxygen sat is 99. 4. Pain score 7/10. 5. Denies dizziness. Does not need help walking or standing and has not fallen in the last 3 months. 6. The patient is not on any blood thinners, does not have a history of hypertension. 7. Opioid therapy is greater than 6 weeks; therefore, an opioid signed contract is on the chart. Risk assessment tool is low. Functional assessment is 32/70. 8. Recreational drug use, she denies. She is not a smoker and does not drink alcohol. [address] [address] PAIN MANAGEMENT CONSULTATION Name: LEELEE ANGLIN Room #: REG [facility] Dunn#: [id number] Admission: 12/11/18 ������������������ Attend Phys: Trinity Min Discharge: ������������������ Date of : 58 Report #: [id number] We did check the prescription monitoring system. The patient is on time for her medication fills today and there is a drug screen on the chart from September, it did show no MS Contin in there, though it was an oral swab and we have had some negative results of those, but it was positive for her Percocet. We will check again in about 6 months' time period. PHYSICAL EXAMINATION: GENERAL: This is a well-developed, well-nourished, well-hydrated exogenous obese 58-year-old female who appears her stated age. Placing her pain score today at 7/10. HEENT: Normocephalic, atraumatic. Pupils equal, round and reactive to light. Extraocular eye muscles are intact. Speech is fluent. EXTREMITIES: No clubbing, no cyanosis, no edema. MUSCULOSKELETAL: She has palpatory tenderness over her paraspinal musculature of the cervical region, more so on the right than the left. She has surgical scars noted that are well healed in the cervical spine as well. The patient's upper extremity strength is judged to be 5/5 in all major muscle groups. ASSESSMENT: 1. Cervical radiculopathy. 2. Third occipital neuralgia. 3. Cervical facet syndrome. 4. Cervical spondylosis with radiculopathy. 5. Cervicogenic headaches. 6. Myofascial pain. 7. Chronic intractable pain. We reviewed the fact that opiate medications are being used to provide analgesia adequate to support activities of daily living, not attempting to achieve a specific pain score on the 0-10 Visual Analog Scale. The current opiate medications are providing sufficient analgesia to allow the patient to participate in activities of daily living. The patient is not exhibiting any aberrant behavior suggestive of drug diversion. The patient is not having any adverse reactions to medications. The patient is not suffering from daytime somnolence or mental acuity changes. The patient is managing opiate-induced constipation with appropriate [id number]-qmgiamr agents and dietary considerations. The patient was counseled on concern for caution with operating a motor vehicle while using opiate medications. A physical exam was performed and the patient's functional status was evaluated. All patients with back pain were advised against the bed rest greater than 4 days and were advised to return to normal activities. Pain score assessment was noted and the treatment plan was reviewed with the patient. All current medications, both prescribed and OTC were reviewed and reconciled on the electronic medical record. Tobacco screening was accomplished and smoking cessation was advised when indicated. BMI was noted and diet/exercise [facility] [address] [place] [address] PAIN MANAGEMENT CONSULTATION Name: LEELEE ANGLIN [id number] Admission: 12/11/18 ������������������ Attend Phys: Trinity Min Discharge: ������������������ Date of : 58 Report #: [id number] modification was recommended for all patients following outside normal parameters. I reviewed with the patient today their responsibilities to safeguard prescription medications, reviewed their responsibility to utilize medications only as prescribed by the physician. They are to seek and receive pain medications only from 1 physician group ( [facility]). They are to use 1 pharmacy and keep the clinic informed if they change pharmacies. Their responsibilities include making followup visits in a timely fashion and to avoid abrupt discontinuation of medication usage. Their responsibilities further include bringing their medications (bottles from the pharmacy with residual pills) to the visit for possible confirmation of pill counts and the patient understands it is their responsibility to submit to random drug screens to ensure both that the medications prescribed are present, and that no other controlled substances are present. All prescriptions provided today were generated electronically. PLAN: 1. We discussed treatment options with the patient today. The patient still does not have a surgery date for her peripheral nerve stimulating device battery replacement. I encouraged her to call the doctor's office if she has not heard anything later this week for a surgery date. 2. The patient is wondering when she can have another epidural steroid injection. I informed her that the steroids were still working in there right now. We would gladly set up another injection for about a month after her last injection that is typically how long Dr. Beasley likes to wait in between injections. The patient is agreeable with that plan. She will make an appointment prior to leaving today. 3. Script was given today for Percocet 7.5/325, #120 for today, 4 and 8-week release and MS Contin 15 mg #90 for today, 4 and 8-week release. This places the patient at morphine mEq 90 morphine mEq, which is under the CDC guidelines. Script was also given for amitriptyline 50 mg 2 at bedtime, quantity 60 with 2 additional refills, and Cymbalta 60 mg daily, #30 with 2 additional refills. 4. The patient will follow up in about 3 weeks for a cervical epidural steroid injection, but may cancel if her surgery is set close to that time. The patient was seen in collaboration with Dr. Raj Beasley. ��������������������������������������������� <ELECTRONICALLY SIGNED> ���������������������������������������� By: Trinity Min ��������������������������������������������� 12/13/18 1512 [id number] Trinity Min /zack
== END ==
LOC: PAIN 06:42
DX: Z76.0 Encounter for issue of repeat prescription (principal); M47.22 Other spondylosis with radiculopathy, cervical region; M54.81 Occipital neuralgia; G89.4 Chronic pain syndrome; Z79.899 Other long term (current) drug therapy

== ENCOUNTER → 2019-01-01 | Outpatient (CLI) | payer OTHER ==
[~2019-01-01] VITALS: Ht 167.6 cm; Wt 98.0 kg
--- NOTE | 2019-01-01 08:21 | NUR ---
Pain Clinic Assessment: 1. History of Osteoarthritis: hands History of Rheumatoid Arthritis: Not Applicable 2. Height: ft. in. cm. Weight: lb. oz. kg. Patient's BMI: 3. Vital Signs: BP: Pulse: Resp: Temp: 02 Sat: ECG Mon: 4. Pain Intensity: 7 5. Fall Risk: Dizziness: Needs help standing or walking: Fallen in the last 3 months: Fall risk comments: 6. Patient on Blood Thinner: None 7. History of Hypertension: N 8. Opioid Therapy greater than 6 weeks: Y Opiate Contract Signed: 05/10/15 9. Risk Assessment Tool Provided: LOW RISK 0/0 10. Functional Assessment Tool: 11. Recreational Drug Use: Never Drug Type: Tobacco Use: Never Smoker Tobacco Type: Amount or Packs/day: How Many Years: Alcohol Use: No Frequency: Quant:
[2019-01-01 08:22] VITALS: BP 135/85
--- NOTE | 2019-01-01 08:26 | NUR ---
Pain Clinic Assessment: 1. History of Osteoarthritis: hands History of Rheumatoid Arthritis: Not Applicable 2. Height: 5 ft. 6 in. 167.6 cm. Weight: 216.0 lb. oz. 97.977 kg. Patient's BMI: 34.9 3. Vital Signs: BP: 135/85 Pulse: 87 Resp: 18 Temp: 02 Sat: 96 ECG Mon: 4. Pain Intensity: 8 5. Fall Risk: Dizziness: N Needs help standing or walking: N Fallen in the last 3 months: N Fall risk comments: 6. Patient on Blood Thinner: None 7. History of Hypertension: N 8. Opioid Therapy greater than 6 weeks: Y Opiate Contract Signed: 05/10/15 9. Risk Assessment Tool Provided: LOW RISK 0/0 10. Functional Assessment Tool: 11. Recreational Drug Use: Never Drug Type: Tobacco Use: Never Smoker Tobacco Type: Amount or Packs/day: How Many Years: Alcohol Use: No Frequency: Quant:
--- NOTE | 2019-01-02 12:16 | HPC ---
[facility] [place] [address] PAIN MANAGEMENT CONSULTATION Name: LEELEE ANGLIN [facility] [id number] Admission: 01/01/19 ������������������ Attend Phys: Raj Beasley DO Discharge: ������������������ Date of : 58 Report #: [id number] THIS REPORT FOR: //name// CC: Raj Horowitz DO DATE OF SERVICE: 01/01/2019 REFERRING PHYSICIAN: Dr. Sarah Horowitz. CHIEF COMPLAINT: Neck pain, right head pain and right upper extremity pain. HISTORY OF PRESENT ILLNESS: As you know, the patient is a very pleasant 58-year-old female who returns today in followup visit to undergo next in the series of cervical epidural injections under fluoroscopic guidance to address her 8/10 pain. She reports good improvement in her left neck pain, left head pain and left upper extremity pain with the previous epidural injection, but is left with 8/10 pain on the right side. She returns to address continued cervical radiculopathy involving mainly just the right side today. She has denied any injury or trauma to the cervical area that may have caused symptom continuation. She does have plans to undergo revision of her peripheral nerve stimulator battery pack, but this is yet to be scheduled. ALLERGIES: AMBIEN. CURRENT MEDICATIONS: Percocet, morphine, Cymbalta, amitriptyline, multivitamins. SOCIAL HISTORY: The patient denies tobacco, alcohol, IV or illicit drug use. She is unaccompanied today. PQRS: The patient has arthritic changes of the neck, bilateral hands and lower lumbar spine. No rheumatoid arthritis. She is not a fall risk, has not had a fall in the last 3 months. She is not on blood thinners, not treated for hypertension. She is on chronic opioids a low risk of opioid addiction. She is placing pain impact score 32/70. PHYSICAL EXAMINATION: VITAL SIGNS: Blood pressure 135/85, pulse is 87, respiratory rate 18 and unlabored. The patient is 96% on room air. Height 5 feet 6 inches tall, weight 216 pounds, BMI calculated 34.9. GENERAL: Well-developed, well-nourished, well-hydrated exogenously obese 58-year-old female appearing stated age, pain is rated at 8/10. HEENT: Normocephalic, atraumatic. Pupils equal, round, reactive to light. EXTREMITIES: Show no clubbing, no cyanosis, and no edema. [address] [address] PAIN MANAGEMENT CONSULTATION Name: LEELEE ANGLIN Room #: REG [facility]#: [id number] Admission: 01/01/19 ������������������ Attend Phys: Raj Beasley DO Discharge: ������������������ Date of : 58 Report #: [id number] MUSCULOSKELETAL: Lower extremity strength appears symmetrical 5/5, intact to light touch from C5-T1 dermatomes. Spurling's test is positive, right greater than left. Cervical provocation met with increasing pain. ASSESSMENT: 1. Cervical radiculopathy. 2. Third occipital neuralgia. 3. Cervical facet syndrome. 4. Cervical spondylosis with radicular symptoms. 5. Cervicogenic headache. 6. Chronic intractable pain. PLAN: 1. The patient returns today in followup visit to undergo next in the series of cervical epidural injections in hopes of improving pain further. The patient reports good improvement in her left neck pain, left hip pain and left upper extremity pain, but continues to experience right neck pain and right upper extremity pain. She returns with pain level of 8/10 requesting this next in the series of cervical epidural injections. She has been advised risks and benefits of the procedure, states understood and wished to proceed. 2. The patient has plans to undergo revision of her peripheral nerve battery pack that has been dysfunctional for the past couple of months. Plan is have the patient undergo this procedure as quickly as possible to regain what efficacy we were receiving with the peripheral nerve stimulators for her cervicogenic pain. The patient has contacts at the surgeon's office preparing to schedule her back for the revision. 3. We will see the patient back in followup visit on an as needed basis. 4. No medication changes made at today's visit. The patient will continue current medical therapy as previously prescribed. PROCEDURE NOTE DESCRIPTION OF PROCEDURE: C7-T1 cervical epidural steroid injection under fluoroscopic guidance. After obtaining written consent, the patient was taken back to fluoroscopy suite, placed in prone position with separate pillows under chest and forehead to decrease cervical lordosis. Skin overlying cervical area then prepped and draped in aseptic fashion. C7-T1 cervical interspace identified by AP fluoroscopy. Skin and subcutaneous tissue overlying target site of injection anesthetized with 3 mL of 1% lidocaine. A 20-gauge 3-1/2 inch Tuohy needle advanced under fluoroscopic guidance towards the epidural space using a right paracentral approach. Epidural space identified using loss of resistance to air technique. After negative aspiration for heme or cerebrospinal fluid, 1 mL of Omnipaque injected. A cervical [facility] [address] [place] [address] PAIN MANAGEMENT CONSULTATION Name: LEELEE ANGLIN Room #: REG JUSTO Dunn#: [id number] Admission: 01/01/19 ������������������ Attend Phys: Raj Beasley DO Discharge: ������������������ Date of : 58 Report #: [id number] epidurogram was confirmed using both AP and oblique fluoroscopy. After negative aspiration for heme or cerebrospinal fluid, 5 mL of a solution containing 2 mL 40 mg per mL, 80 mg total triamcinolone, 3 mL lidocaine 1% injected slowly. Needle retracted detention, flushed with 1 mL of 1% lidocaine and then removed. Sterile bandage placed over injection site. No new motor deficits present in the upper extremities following procedure. The patient tolerated procedure well, carefully escorted to the recovery room in stable condition. No apparent complication. After meeting discharge criteria, the patient discharged home. ��������������������������������������������� <ELECTRONICALLY SIGNED> ���������������������������������������� By: Raj Beasley DO ��������������������������������������������� 01/02/19 1216 1239 [id number] Raj Beasley DO /nt
== END | disposition home or self-care (01) ==
LOC: PAIN 06:41
DX: M47.22 Other spondylosis with radiculopathy, cervical region (principal); G89.29 Other chronic pain; M53.82 Other specified dorsopathies, cervical region; M54.81 Occipital neuralgia; G44.89 Other headache syndrome; Z88.8 Allergy status to other drugs, medicaments and biological substances; Z79.899 Other long term (current) drug therapy; Z79.891 Long term (current) use of opiate analgesic; Z98.890 Other specified postprocedural states

== ENCOUNTER → 2019-03-06 | Outpatient (CLI) | payer OTHER ==
[~2019-03-06] VITALS: Ht 167.6 cm; Wt 98.3 kg
--- NOTE | ~2019-03-06 | HPC ---
Formerly [facility] [address] [place] [address] PAIN MANAGEMENT CONSULTATION Name: LEELEE ANGLIN Room #: REG [facility].#: [id number] Admission: 03/06/19 Attend Phys: Raj Beasley DO Discharge: Date of : 58 Report #: [id number] THIS REPORT FOR: //name// CC: Raj Horowitz DATE OF SERVICE: 03/06/2019 REFERRING PHYSICIAN: Dr. Sarah Horowitz. CHIEF COMPLAINT: Neck pain, right head pain, right upper extremity pain. HISTORY OF PRESENT ILLNESS: As you know, the patient is a very pleasant, 58-year-old female who returns today in followup visit for refill of medications and to begin the authorization process to address the C2-C3 facet joint on the right side, which is causing pain; intensity today of around 7/10. The patient indicates that she has recently had the peripheral nerve stimulator battery changed and this is now covering most of the head pain she has been experiencing, but it has left her with this one area of discomfort that is point specific on the right side directly over the C2-C3 facet joint. She returns today in followup visit for medication management and to begin the process of approvals for right C2-C3 intra-articular facet injection to address facet arthropathy pain. She denies new injury or trauma. Only change in medical history since our last visit is the revision to her battery for her peripheral nerve stimulator. She returns today for medication management and begin the process of authorization. ALLERGIES: AMBIEN. CURRENT MEDICATIONS: Percocet 7.5/325 one tab p.o. q. 6 hours p.r.n. for pain, morphine extended release 15 mg t.i.d., Cymbalta 60 mg p.o. daily, amitriptyline 100 mg p.o. at bedtime, multivitamin 1 tab per day. SOCIAL HISTORY: The patient denies tobacco, alcohol, IV or illicit drug use. She is unaccompanied today. PQRS: The patient has arthritic changes of the neck, bilateral hands, and lower lumbar spine. No rheumatoid arthritis. She is not a fall risk, has not had a fall in last 3 months. She is not on blood thinners, not treated for hypertension. She is on chronic opioids and is under contract with [facility] to receive those medications. She is at a low risk for opioid addiction based on our assessment tool. Functional pain impact 32/70, moderate interference in daily activities secondary to pain. PHYSICAL EXAMINATION: Formerly [facility] [address] [place] [address] PAIN MANAGEMENT CONSULTATION Name: LEELEE ANGLIN Room #: REG [facility].#: [id number] Admission: 03/06/19 Attend Phys: Raj Beasley DO Discharge: Date of : 58 Report #: [id number] VITAL SIGNS: Blood pressure 134/86, pulse 66, respiratory rate 16 and unlabored. The patient is 98% on room air. Height 5 feet 6 inches tall, weight 216.8 pounds, BMI calculated 35.0. GENERAL: Well-developed, well-nourished, well-hydrated, exogenously obese, 58-year-old female appearing stated age, pain is rated today 7/10. HEENT: Normocephalic, atraumatic. Pupils are equal, round, reactive to light. Speech fluent. The patient deemed a good historian. EXTREMITIES: Show no clubbing, no cyanosis, and no edema. MUSCULOSKELETAL: There is palpatory tenderness over the right upper cervical area, directly overlying the C2-C3 cervical facet area. There is also noted palpatory finding of muscle spasming throughout the paraspinal cervical muscles on the right. There is also easily palpated a peripheral nerve stimulating lead on the right side, just overlying the area of discomfort. Upper extremity strength appears symmetrical with slight giveaway strength noted on the right due to increasing pain. Cervical provocation is met with increasing pain with rightward rotation, lateral flexion to the right, as well as extension on the right. ASSESSMENT: 1. Chronic cervical facet arthropathy. 2. Cervical spondylosis without radicular symptoms. 3. History of chronic cervical radiculopathy. 4. Occipital neuralgia. 5. Chronic headache secondary to cervical spondylosis and occipital nerve involvement. 6. Chronic intractable pain. 7. Opioid dependency. PLAN: 1. The patient returns today in followup visit to begin the process of authorization to undergo a C2-C3 facet injection on the right side to address current point-specific pain for which the patient is providing pain score of 7/10. Unfortunately, the patient's peripheral nerve stimulator that has been recently adjusted and battery revised is not providing coverage over this area. The patient indicates the nerve stimulator is approximately 1 cm above the area of discomfort and does not cover this single point-specific area. She has requested to undergo injection in the area in hopes of improving pain. We have advised the patient that third libertarian payer restrictions require that authorization be obtained before she could undergo a right C2-C3 intra-articular facet injection. We will begin this process immediately. Once we have this authorization available, we will have the patient return to undergo right C2-C3 intra-articular facet injection. I did advise the patient authorization could take anywhere from 4-7 working days. We will begin this process immediately. 2. The patient was provided prescription of amitriptyline 50 mg dose. She is to take 2 tabs p.o. at bedtime. I have given the patient #30 tablets, 1 refill, 2 months' worth of medication. [address] [address] PAIN MANAGEMENT CONSULTATION Name: LEELEE ANGLIN Room #: REG [facility]..#: [id number] Admission: 03/06/19 Attend Phys: Raj Beasley DO Discharge: Date of : 58 Report #: [id number] 3. The patient was provided prescription of Cymbalta 60 mg dose 1 tab p.o. every day, #30 with 1 refill, 2 months' worth of medication. 4. We reviewed the fact that opiate medications are being used to provide analgesia adequate to support activities of daily living, not attempting to achieve a specific pain score on the 0-10 Visual Analog Scale. The current opiate medications are providing sufficient analgesia to allow the patient to participate in activities of daily living. The patient is not exhibiting any aberrant behavior suggestive of drug diversion. The patient is not having any adverse reactions to medications. The patient is not suffering from daytime somnolence or mental acuity changes. The patient is managing opiate-induced constipation with appropriate pyqv-slo-ooqcmmq agents and dietary considerations. The patient was counseled on concern for caution with operating a motor vehicle while using opiate medications. A physical exam was performed and the patient's functional status was evaluated. All patients with back pain were advised against the bed rest greater than 4 days and were advised to return to normal activities. Pain score assessment was noted and the treatment plan was reviewed with the patient. All current medications, both prescribed and OTC were reviewed and reconciled on the electronic medical record. Tobacco screening was accomplished and smoking cessation was advised when indicated. BMI was noted and diet/exercise modification was recommended for all patients following outside normal parameters. I reviewed with the patient today their responsibilities to safeguard prescription medications, reviewed their responsibility to utilize medications only as prescribed by the physician. They are to seek and receive pain medications only from 1 physician group ( [facility]). They are to use 1 pharmacy and keep the clinic informed if they change pharmacies. Their responsibilities include making followup visits in a timely fashion and to avoid abrupt discontinuation of medication usage. Their responsibilities further include bringing their medications (bottles from the pharmacy with residual pills) to the visit for possible confirmation of pill counts and the patient understands it is their responsibility to submit to random drug screens to ensure both that the medications prescribed are present, and that no other controlled substances are present. All prescriptions provided today were generated electronically. All prescriptions provided today were generated electronically. 5. We have reviewed the patient's PDMP for both [place] and [place]. There were no aberrant entries, no concerning report was in the documentation indicating the patient is receiving medications from other prescribers. 6. The patient was provided prescription of MS Contin 15 mg dose 1 tab p.o. q. 8 hours, #90 with releases of today and 4 weeks from today. This calculates out to 45 morphine equivalents a day. 7. The patient was provided a prescription of oxycodone/acetaminophen 7.5/[address] [address] PAIN MANAGEMENT CONSULTATION Name: LEELEE ANGLIN Room #: REG [facility]#: [id number] Admission: 03/06/19 Attend Phys: Raj Beasley DO Discharge: Date of : 58 Report #: [id number] mg dose 1 tab p.o. q. 6 hours p.r.n. for pain. I have given the patient #120. This also calculates out to 45 morphine equivalents. The total opioid available per day is 90 morphine equivalents, places the patient at the highest level of opioid medication recommended by CDC. This would indicate the patient is in a cqowvqvf-py-jsnwah range of risk factors with opioids and will have to be seen on every other month basis. I have advised the patient of such today. To address our chronic opioid medication management patients, we have established a protocol of medication use and the patient falls into the every other month range. She was given a prescription for release today and 4 weeks from today of 120 Percocet 7.5/325 in written form. The patient was advised to take the medication as directed, not to utilize the medication prophylactically, nor she is to take more medication per day. 8. We will see the patient back in followup visit once we have achieved authorization to undergo the intra-articular facet injection on the right. Otherwise, we will see her back in followup visit in 2 months for medication management. By: [id number] Raj Beasley DO /nt
[2019-03-06 08:18] VITALS: BP 134/86
--- NOTE | 2019-03-06 08:23 | NUR ---
Pain Clinic Assessment: 1. History of Osteoarthritis: hands History of Rheumatoid Arthritis: Not Applicable 2. Height: 5 ft. 6 in. 167.6 cm. Weight: 216.8 lb. oz. 98.340 kg. Patient's BMI: 35.0 3. Vital Signs: BP: 134/86 Pulse: 66 Resp: 16 Temp: 02 Sat: 98 ECG Mon: 4. Pain Intensity: 7 5. Fall Risk: Dizziness: Y Needs help standing or walking: N Fallen in the last 3 months: Y Fall risk comments: 6. Patient on Blood Thinner: None 7. History of Hypertension: N 8. Opioid Therapy greater than 6 weeks: Y Opiate Contract Signed: 05/10/15 9. Risk Assessment Tool Provided: LOW RISK 0/0 10. Functional Assessment Tool: 11. Recreational Drug Use: Never Drug Type: Tobacco Use: Never Smoker Tobacco Type: Amount or Packs/day: How Many Years: Alcohol Use: No Frequency: Quant:
== END ==
LOC: PAIN 06:37
DX: M47.22 Other spondylosis with radiculopathy, cervical region (principal); M12.88 Other specific arthropathies, not elsewhere classified, other specified site; M79.601 Pain in right arm; Z79.891 Long term (current) use of opiate analgesic

== ENCOUNTER → 2019-04-30 | Outpatient (CLI) | payer OTHER ==
[~2019-04-30] VITALS: Ht 167.6 cm; Wt 99.6 kg
[2019-04-30 10:42] VITALS: BP 128/75
--- NOTE | 2019-04-30 10:58 | NUR ---
Pain Clinic Assessment: 1. History of Osteoarthritis: HANDS NECK History of Rheumatoid Arthritis: DENIES 2. Height: 5 ft. 6 in. 167.6 cm. Weight: 219.6 lb. oz. 99.610 kg. Patient's BMI: 35.5 3. Vital Signs: BP: 128/75 Pulse: 76 Resp: 16 Temp: 02 Sat: 98 ECG Mon: 4. Pain Intensity: 8 5. Fall Risk: Dizziness: N Needs help standing or walking: N Fallen in the last 3 months: N Fall risk comments: 6. Patient on Blood Thinner: None 7. History of Hypertension: N 8. Opioid Therapy greater than 6 weeks: Y Opiate Contract Signed: 05/10/15 9. Risk Assessment Tool Provided: LOW RISK 0/0 10. Functional Assessment Tool: 11. Recreational Drug Use: Never Drug Type: Tobacco Use: Never Smoker Tobacco Type: Amount or Packs/day: How Many Years: Alcohol Use: No Frequency: Quant:
--- NOTE | 2019-05-07 07:57 | HPC ---
[facility] [place] [address] [place] [address] PAIN MANAGEMENT CONSULTATION Name: LEELEE ANGLIN Room #: REG [facility]..#: [id number] Admission: 04/30/19 Attend Phys: Raj Beasley DO Discharge: Date of : 58 Report #: [id number] THIS REPORT FOR: //name// CC: Raj Horowitz DO DATE OF SERVICE: 04/30/2019 REFERRING PHYSICIAN: Sarah Horowitz DO CHIEF COMPLAINT: Neck pain, right head pain, right upper extremity pain. HISTORY OF PRESENT ILLNESS: As you know, the patient is a very pleasant 58-year-old female who returns today in followup visit for medication refills. She continues to experience point specific pain over the right upper cervical area. She has had adjustments in her peripheral nerve stimulator with increase in intensity and the change in the distribution of coverage. They wish to determine if this will improve her overall pain. She returns today in followup visit stating pain level of 8/10. She states she is becoming somewhat depressed due to ongoing pain and a recent diagnosis of her son with recurrent testicular cancer. She returns today in followup visit for medication management. ALLERGIES: AMBIEN. CURRENT MEDICATIONS: Percocet 7.5/325 one tab every 6 hours p.r.n. for pain, morphine extended release 15 mg t.i.d., Cymbalta 60 mg once a day, amitriptyline 100 mg p.o. at bedtime, multivitamin 1 tab per day. SOCIAL HISTORY: The patient denies tobacco, alcohol, IV or illicit drug use. She is unaccompanied today. PQRS: The patient has arthritic changes of the cervical spine, bilateral hands, and lumbar spine. No rheumatoid arthritis. She is not a fall risk, has not had a fall in last 3 months. She is not on blood thinners, nor she is treated for hypertension. She is on chronic opioids and under contract with [facility]. She has a low opioid addiction potential based on our assessment tool. She is placing pain impact score 32/70, moderate interference of daily activities secondary to pain. PHYSICAL EXAMINATION: VITAL SIGNS: Blood pressure 128/75, pulse 76, respiratory rate 16 and unlabored. The patient is 98% on room air. Height 5 feet 6 inches tall, weight 219.6 pounds, BMI calculated 35.5. GENERAL: Well-developed, well-nourished, well-hydrated exogenously obese 58-year-old female appearing stated age, pain is rated at around 8/10. [address] [address] PAIN MANAGEMENT CONSULTATION Name: LEELEE ANGLIN Room #: REG [facility]#: [id number] Admission: 04/30/19 Attend Phys: Raj Beasley DO Discharge: Date of : 58 Report #: [id number] HEENT: Normocephalic, atraumatic. Pupils equal, round, reactive to light. EXTREMITIES: Show no clubbing, no cyanosis, and no edema. MUSCULOSKELETAL: Palpatory tenderness is noted over the paraspinal musculature of the cervical spine. Deep palpation of the upper facet joints causes intensification of pain. Cervical provocation testing, extension, rotation, and lateral flexion all intensify cervical pain. She does have equivocal Spurling's test today. ASSESSMENT: 1. Chronic cervical radiculopathy. 2. Cervical spondylosis with radicular symptoms. 3. Occipital neuralgia. 4. Chronic headaches secondary to cervical spondylosis and occipital nerve involvement. 5. Chronic intractable pain. 6. Opioid dependency. PLAN: 1. The patient returns today in followup visit indicating that she has been much more depressed of late. Apparently, her son has been diagnosed with recurrent testicular cancer and just starting treatment for this, this in conjunction with the ongoing pain issues on the right side have "just brought her down." She returns today in followup visit, somewhat more flat in her affect likely due to this depression. She is requesting refill on medications. She denies side effects to the therapy. 2. We recommend increase in her Cymbalta. This will help with her depression and may also improve overall pain. Recommend going from 60 mg once a day to 60 mg b.i.d. I have written for #60 tablets, 1 refill, 2 months' worth of medication. The patient will escalate the dose of medication, watch for side effects of sleepiness, disorientation, confusion, mental slowing or increasing depression. If she notes any of the side effects, reduce to the 60 mg once a day dose and contact our clinic. 3. We have agreed to continue the patient on her MS ER 15 mg dose 1 tab p.o. t.i.d. I have given the patient #90 tablets, releasing today and 4 weeks from today, 2 months' worth of medication. 4. The patient was provided prescription of Percocet 7.5/325 one tab p.o. q. 6 hours p.r.n. for pain. I have given the patient #120, releasing today and 4 weeks from today, 2 months' worth of medication. We reviewed the fact that opiate medications are being used to provide analgesia adequate to support activities of daily living, not attempting to achieve a specific pain score on the 0-10 Visual Analog Scale. The current opiate medications are providing sufficient analgesia to allow the patient to participate in activities of daily living. The patient is not exhibiting any aberrant behavior suggestive of drug diversion. The patient is not having any adverse reactions to medications. The patient is not suffering from daytime [facility] [address] [place] [address] PAIN MANAGEMENT CONSULTATION Name: LEELEE ANGLIN Room #: REG [facility].#: [id number] Admission: 04/30/19 Attend Phys: Raj Beasley DO Discharge: Date of : 58 Report #: [id number] somnolence or mental acuity changes. The patient is managing opiate-induced constipation with appropriate dnxw-asg-ttcqkth agents and dietary considerations. The patient was counseled on concern for caution with operating a motor vehicle while using opiate medications. A physical exam was performed and the patient's functional status was evaluated. All patients with back pain were advised against the bed rest greater than 4 days and were advised to return to normal activities. Pain score assessment was noted and the treatment plan was reviewed with the patient. All current medications, both prescribed and OTC were reviewed and reconciled on the electronic medical record. Tobacco screening was accomplished and smoking cessation was advised when indicated. BMI was noted and diet/exercise modification was recommended for all patients following outside normal parameters. I reviewed with the patient today their responsibilities to safeguard prescription medications, reviewed their responsibility to utilize medications only as prescribed by the physician. They are to seek and receive pain medications only from 1 physician group ([facility]). They are to use 1 pharmacy and keep the clinic informed if they change pharmacies. Their responsibilities include making followup visits in a timely fashion and to avoid abrupt discontinuation of medication usage. Their responsibilities further include bringing their medications (bottles from the pharmacy with residual pills) to the visit for possible confirmation of pill counts and the patient understands it is their responsibility to submit to random drug screens to ensure both that the medications prescribed are present, and that no other controlled substances are present. All prescriptions provided today were generated electronically. 5. The patient was provided a prescription of amitriptyline 50 mg dose 2 tabs p.o. at bedtime or a total of 100 mg with 1 refill. 6. We will see the patient back in followup visit in 2 months for medication management, earlier if interventional treatments are necessary. <ELECTRONICALLY SIGNED> By: Raj Beasley DO 05/07/19 [id number] Raj Beasley DO /nt
== END ==
LOC: PAIN 06:53
DX: M47.22 Other spondylosis with radiculopathy, cervical region (principal); G89.4 Chronic pain syndrome; M54.81 Occipital neuralgia; R51 Headache; F11.20 Opioid dependence, uncomplicated

== ENCOUNTER → 2019-06-12 | Outpatient (CLI) | payer OTHER ==
[~2019-06-12] VITALS: Ht 167.6 cm; Wt 99.8 kg
[2019-06-12 12:44] VITALS: BP 140/90
--- NOTE | 2019-06-12 12:47 | NUR ---
Pain Clinic Assessment: 1. History of Osteoarthritis: HANDS NECK History of Rheumatoid Arthritis: DENIES 2. Height: 5 ft. 6 in. 167.6 cm. Weight: 220.0 lb. oz. 99.792 kg. Patient's BMI: 35.5 3. Vital Signs: BP: 140/90 Pulse: 79 Resp: 18 Temp: 02 Sat: 94 ECG Mon: 4. Pain Intensity: 7 5. Fall Risk: Dizziness: N Needs help standing or walking: N Fallen in the last 3 months: N Fall risk comments: 6. Patient on Blood Thinner: None 7. History of Hypertension: N 8. Opioid Therapy greater than 6 weeks: Y Opiate Contract Signed: 05/10/15 9. Risk Assessment Tool Provided: LOW RISK 0/0 10. Functional Assessment Tool: 11. Recreational Drug Use: Never Drug Type: Tobacco Use: Never Smoker Tobacco Type: Amount or Packs/day: How Many Years: Alcohol Use: No Frequency: Quant:
--- NOTE | 2019-06-18 08:03 | HPC ---
[facility] [place] [address] PAIN MANAGEMENT CONSULTATION Name: LEELEE ANGLIN Room #: REG [facility] M.R.#: [id number] Admission: 06/12/19 Attend Phys: Raj Beasley DO Discharge: Date of : 58 Report #: [id number] THIS REPORT FOR: //name// CC: FAM unknown Raj Horowitz DO DATE OF SERVICE: 06/12/2019 CHIEF COMPLAINT: Neck pain, right head pain, right upper extremity pain. HISTORY OF PRESENT ILLNESS: As you know, the patient is a very pleasant 58-year-old female returning today in followup visit for medication management. The patient is quite depressed of late due to her ongoing pain issues and recent diagnosis of her son with recurrent prostate cancer. Apparently, her son has no insurance and this is causing a significant amount of stress and anxiety and this has led to increasing pain in the patient. She is placing pain score of 7/10. She has had recent adjustments made to her peripheral nerve stimulator, but this is provided no benefit. She returns today in followup visit requesting refill on medications. She is denying side effects of sleepiness, disorientation, confusion, mental slowing with its use. ALLERGIES: AMBIEN. CURRENT MEDICATIONS: Percocet 7.5/325 one tab every 6 hours p.r.n. for pain, MS Contin 15 mg dose 1 tab p.o. t.i.d., Cymbalta 60 mg per day, amitriptyline 100 mg p.o. at bedtime, multivitamin 1 tab per day. SOCIAL HISTORY: The patient denies tobacco, alcohol, IV or illicit drug use. She is unaccompanied today. IMAGING: No new imaging available. PHYSICAL EXAMINATION: VITAL SIGNS: Blood pressure 140/90, pulse 79, respiratory rate 18 and unlabored. The patient is 94% on room air. Height 5 feet 6 inches tall, weight 220 pounds, BMI calculated at 35.5. GENERAL: Well-developed, well-nourished, well-hydrated exogenously obese 58-year-old female appearing stated age, pain is rated around 7-8/10. HEENT: Normocephalic, atraumatic. Pupils equal, round, reactive to light. EXTREMITIES: Show no clubbing, no cyanosis, and no edema. MUSCULOSKELETAL: Upper extremity strength appears symmetrical 5/5. Slight giveaway strength noted with abduction of the right shoulder when compared to left. Cervical provocation testing is met with increasing neck pain, no radiation of symptoms. Spurling's test is negative. Deep palpation of the cervical spine causes multiple trigger points to be identified. [address] [address] PAIN MANAGEMENT CONSULTATION Name: LEELEE ANGLIN [id number] Admission: 06/12/19 Attend Phys: Raj Beasley DO Discharge: Date of : 58 Report #: [id number] ASSESSMENT: 1. Chronic cervical radiculopathy. 2. Cervical spondylosis with radicular symptoms. 3. Occipital neuralgia. 4. Cervicogenic headaches. 5. Chronic intractable pain. 6. Opioid dependency. PLAN: 1. The patient returns today in followup visit requesting refill on medications. She feels medications are working beneficially for pain control despite the elevated pain levels of 7-8/10 today. The patient states her pain has been exacerbated with increasing stressors at home. Apparently, the patient is having some issues with her son and his insurance issues and problems with his recurrent prostate cancer. She returns today in followup visit requesting refill on medications at current dosing, she does not request a change in the therapy. She does have plans to undergo further adjustments in her peripheral nerve stimulator, but has yet to make that appointment. She returns today requesting refill of medications. 2. We reviewed the fact that opiate medications are being used to provide analgesia adequate to support activities of daily living, not attempting to achieve a specific pain score on the 0-10 Visual Analog Scale. The current opiate medications are providing sufficient analgesia to allow the patient to participate in activities of daily living. The patient is not exhibiting any aberrant behavior suggestive of drug diversion. The patient is not having any adverse reactions to medications. The patient is not suffering from daytime somnolence or mental acuity changes. The patient is managing opiate-induced constipation with appropriate tqlz-isd-fuwggxx agents and dietary considerations. The patient was counseled on concern for caution with operating a motor vehicle while using opiate medications. A physical exam was performed and the patient's functional status was evaluated. All patients with back pain were advised against the bed rest greater than 4 days and were advised to return to normal activities. Pain score assessment was noted and the treatment plan was reviewed with the patient. All current medications, both prescribed and OTC were reviewed and reconciled on the electronic medical record. Tobacco screening was accomplished and smoking cessation was advised when indicated. BMI was noted and diet/exercise modification was recommended for all patients following outside normal parameters. I reviewed with the patient today their responsibilities to safeguard prescription medications, reviewed their responsibility to utilize medications only as prescribed by the physician. They are to seek and receive pain medications only from 1 physician group ([facility]). They are to use [address] [address] PAIN MANAGEMENT CONSULTATION Name: LEELEE ANGLIN [id number] Admission: 06/12/19 Attend Phys: Raj Beasley DO Discharge: Date of : 58 Report #: [id number] pharmacy and keep the clinic informed if they change pharmacies. Their responsibilities include making followup visits in a timely fashion and to avoid abrupt discontinuation of medication usage. Their responsibilities further include bringing their medications (bottles from the pharmacy with residual pills) to the visit for possible confirmation of pill counts and the patient understands it is their responsibility to submit to random drug screens to ensure both that the medications prescribed are present, and that no other controlled substances are present. All prescriptions provided today were generated electronically. 3. The patient was provided a prescription of MS Contin 15 mg dose 1 tab p.o. t.i.d. I have given the patient #90 tablets and no refill with releases of today and 4 weeks from today, 2 months' worth of medication. 4. The patient was provided a prescription of oxycodone/acetaminophen 7.5/325 one tab every 6 hours p.r.n. for pain. I have given the patient #120 tablets, releasing today and 4 weeks from today that is 2 months' worth of medication. 5. The patient was provided refill prescription of Cymbalta 60 mg dose 1 tab p.o. b.i.d., #60 with 1 refill, 2 months' worth of medication. 6. The patient was provided a refill prescription of amitriptyline 50 mg dose 2 tabs p.o. at bedtime, #60 with 1 refill, 2 months' worth of medication. 7. The patient will return to our clinic in 2 months for medication management and discuss further treatment options. <ELECTRONICALLY SIGNED> By: Raj Beasley DO 06/18/19 0803 [id number] 0745 Raj Beasley DO /nt
== END ==
LOC: PAIN 06:52
DX: M47.22 Other spondylosis with radiculopathy, cervical region (principal); R51 Headache; G89.29 Other chronic pain; M54.81 Occipital neuralgia; M79.604 Pain in right leg; Z79.891 Long term (current) use of opiate analgesic

== ENCOUNTER → 2019-08-20 | Outpatient (CLI) | payer OTHER ==
[~2019-08-20] VITALS: Ht 167.6 cm; Wt 103.3 kg
[2019-08-20 09:30] VITALS: BP 149/85
--- NOTE | 2019-08-20 09:36 | NUR ---
Pain Clinic Assessment: 1. History of Osteoarthritis: HANDS NECK History of Rheumatoid Arthritis: DENIES 2. Height: 5 ft. 6 in. 167.6 cm. Weight: 227.8 lb. oz. 103.330 kg. Patient's BMI: 36.8 3. Vital Signs: BP: 149/85 Pulse: 98 Resp: 16 Temp: 02 Sat: 97 ECG Mon: 4. Pain Intensity: 7 5. Fall Risk: Dizziness: N Needs help standing or walking: N Fallen in the last 3 months: N Fall risk comments: 6. Patient on Blood Thinner: None 7. History of Hypertension: N 8. Opioid Therapy greater than 6 weeks: Y Opiate Contract Signed: 05/10/15 9. Risk Assessment Tool Provided: MODERATE RISK 11/20 10. Functional Assessment Tool: / 11. Recreational Drug Use: Never Drug Type: Tobacco Use: Never Smoker Tobacco Type: Amount or Packs/day: How Many Years: Alcohol Use: No Frequency: Quant:
--- NOTE | 2019-08-21 15:35 | HPC ---
[facility] [address] [place] [address] PAIN MANAGEMENT CONSULTATION Name: LEELEE ANGLIN Room #: REG [facility]..#: [id number] Admission: 08/20/19 Attend Phys: Trinity Min Discharge: Date of : 58 Report #: [id number] THIS REPORT FOR: cc: FAM - Family physician unknown FAM - Family physician unknown Trinity Min ~ THIS REPORT FOR: //name// CC: LUH MOLINA DATE OF SERVICE: 08/20/2019 CHIEF COMPLAINT: Chronic neck pain, head pain and upper extremity pain. HISTORY OF PRESENT ILLNESS: As you know, this is a very pleasant 58-year-old female who returns today for refill of her medication management that she uses to help treat her ongoing headaches and neck pain. She does not feel that her peripheral nerve stimulator has not been helpful. She does feel that her medications that we prescribed for her as MS Contin and Percocet as well as amitriptyline and duloxetine have been beneficial. She is able to work and keep active in her daily life by using her medication. Today, she is reporting her pain as a 7/10, reporting that it is worse with light and loud sounds and bending over, but she feels the medications as well as relaxation and her dark environment after work are beneficial. Today, she would like refills of her medicines. ALLERGIES: AMLODIPINE AND AMBIEN. MEDICATIONS: Oxycodone 7.5/325 p.r.n., MS Contin 15 mg every 8 hours, Cymbalta 60 mg daily, amitriptyline 100 mg at bedtime, multivitamin, Tylenol Arthritis p.r.n. PQRS: 1. The patient has a history of osteoarthritis in her hands and neck. Denies any rheumatoid arthritis. 2. Height is 5 feet 6 inches, weight is 227, BMI is 36. 3. Vital signs, blood pressure 149/85, pulse is 98, respirations 16, oxygen sat is 97. 4. Pain score is 7/10. 5. Denies dizziness, does not need help walking or standing, has not fallen in the last 3 months. 6. The patient is not on any blood thinners or medicine for hypertension. Opioid therapy is greater than 6 weeks; therefore, an opioid signed contract is on the chart. Risk assessment tool is moderate. Functional assessment is [address] [address] PAIN MANAGEMENT CONSULTATION Name: LEELEE ANGLIN Room #: REG [facility] Mona#: [id number] Admission: 08/20/19 Attend Phys: Trinity Min Discharge: Date of : 58 Report #: [id number] 58/70. 7. Recreational drug use, she denies. She is not a smoker and does not drink alcohol. According to the prescription monitoring system, the patient is filling appropriately. Her medication refills are due soon. Her morphine mEq according to the CDC guidelines is 90. There is a recent drug screen on the chart. The patient does keep her medicines locked up in a safe at home. PHYSICAL EXAMINATION: GENERAL: This is alert and orientated, well-developed, well-nourished, well-hydrated exogenously obese, 58-year-old female who appears her stated age, placing her pain score at 7/10. HEENT: Normocephalic, atraumatic. Pupils equal, round and reactive to light. MUSCULOSKELETAL: Without clubbing, cyanosis or edema. MUSCULOSKELETAL: Cervical provocation testing is met with increased neck pain without radicular symptoms. Her upper extremity strength is slightly diminished on her right compared to the left, 4/5. ASSESSMENT: 1. Chronic cervical radiculopathy. 2. Cervical spondylosis without radicular symptoms. 3. Occipital neuralgia. 4. Cervicogenic headaches. 5. Chronic intractable pain. 6. Opioid dependency under written agreement. PLAN: 1. We discussed treatment options with the patient today. The patient finds her medications very beneficial in controlling her pain with no side effects of constipation or daytime sleepiness. She does report she has been taking only 1 Cymbalta tablet a day, which she has been finding as helpful. She had to decrease this medicine due to insurance issues, though that she just recently filled Cymbalta pills bid for the last prescriptions. She is unsure why the insurance allowed at this time, but she will continue at one tablet a day. 2. Scripts given for MS Contin 15 mg, #90, for today and 4-week release and oxycodone 7.5/325 today and 4-week release. We will refill her amitriptyline 50 mg 1-2 at bedtime 60 with 5 additional refills and Cymbalta 60 mg b.i.d., 60 with 5 additional refills. If insurance does require prior authorization to increase and then we will decrease it back to her current level. 4. The patient continues to use her peripheral nerve stimulator as well for her [facility] [address] [place] [address] PAIN MANAGEMENT CONSULTATION Name: LEELEE ANGLIN Room #: REG [facility] MariellaTory#: [id number] Admission: 08/20/19 Attend Phys: Trinity Min Discharge: Date of : 58 Report #: [id number] chronic pain. 5. The patient is seen in collaboration with Dr. Luh Beasley. <ELECTRONICALLY SIGNED> By: Trinity Min 08/21/19 1535 1037 2051 Trinity Min /nt
== END ==
LOC: PAIN 06:34
DX: M47.22 Other spondylosis with radiculopathy, cervical region (principal); M54.81 Occipital neuralgia; R51 Headache; F11.20 Opioid dependence, uncomplicated; M79.643 Pain in unspecified hand; G89.29 Other chronic pain; Z88.8 Allergy status to other drugs, medicaments and biological substances; Z79.899 Other long term (current) drug therapy

== ENCOUNTER → 2019-10-16 | Outpatient (CLI) | payer OTHER ==
[~2019-10-16] VITALS: Ht 167.6 cm; Wt 104.3 kg
[2019-10-16 13:25] VITALS: BP 141/83
--- NOTE | 2019-10-16 13:34 | NUR ---
Pain Clinic Assessment: 1. History of Osteoarthritis: HANDS NECK History of Rheumatoid Arthritis: DENIES 2. Height: 5 ft. 6 in. 167.6 cm. Weight: 230.0 lb. oz. 104.328 kg. Patient's BMI: 37.1 3. Vital Signs: BP: 141/83 Pulse: 72 Resp: 16 Temp: 02 Sat: 93 ECG Mon: 4. Pain Intensity: 8 5. Fall Risk: Dizziness: N Needs help standing or walking: N Fallen in the last 3 months: N Fall risk comments: 6. Patient on Blood Thinner: None 7. History of Hypertension: N 8. Opioid Therapy greater than 6 weeks: Y Opiate Contract Signed: 05/10/15 9. Risk Assessment Tool Provided: MODERATE RISK 5 10. Functional Assessment Tool: 58/70 11. Recreational Drug Use: Never Drug Type: Tobacco Use: Never Smoker Tobacco Type: Amount or Packs/day: How Many Years: Alcohol Use: No Frequency: Quant:
--- NOTE | 2019-10-17 08:02 | HPC ---
[facility] [address] [place] [address] PAIN MANAGEMENT CONSULTATION Name: LEELEE ANGLIN Room #: REG [facility] M..#: [id number] Admission: 10/16/19 Attend Phys: Trinity Min Discharge: Date of : 58 Report #: [id number] THIS REPORT FOR: cc: FAM - Family physician unknown FAM - Family physician unknown Trinity Min ~ CC: Raj Beasley DO DATE OF SERVICE: 10/16/2019 CHIEF COMPLAINT: Neck pain, right occipital pain and upper extremity pain. HISTORY OF PRESENT ILLNESS: This is a 58-year-old female who returns to the pain clinic today for refill of her medications that she finds very beneficial in controlling her left neck and headache. 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 So today, she is rating a pain score of 8/10. She has been working 2 weeks on and then is off for 2 weeks, when she is not working she feels that this pain has decreased, but she is on the computer and wearing a headset during her working days and that has increased her pain. She states that her spinal cord stimulator, as well as a dark environment and massage has been slightly beneficial in controlling her pain. ALLERGIES: AMBIEN. CURRENT MEDICATIONS: Amitriptyline 50 mg, duloxetine 60 mg, oxycodone 7.5/325 p.r.n., MS Contin 15 mg q. 8 hours, multivitamin and arthritis pain medicine. PQRS: 1. She has osteoarthritic changes in her hands and cervical spine. Denies any rheumatoid arthritis. 2. Height is 5 feet 6 inches, weight is 230, BMI is 37. 3. Vital signs 141/83, pulse is 72, respirations 16, oxygen sat is 93%. 4. Pain score is 8/10. 5. Denies dizziness, does not need help walking or standing, has not fallen in the last 3 months. 6. The patient is not on any blood thinners or medicine for hypertension. 7. Opioid therapy is greater than 6 weeks; therefore, an opioid signed contract is on the chart. Risk assessment is moderate. Functional assessment is 58/70. 8. Recreational drug use, she denies. She is not a smoker and does not drink alcohol. According to the prescription monitoring system, the patient is filling appropriately for her medications from Dr. Raj Beasley. According to the CDC guidelines, her morphine mEq is 90 MME per day. There [place] [address] PAIN MANAGEMENT CONSULTATION Name: LEELEE ANGLIN Room #: REG [facility].#: [id number] Admission: 10/16/19 Attend Phys: Trinity Min Discharge: Date of : 58 Report #: [id number] on the chart that is appropriate for her medications. PHYSICAL EXAMINATION: GENERAL: This is alert and orientated 58-year-old female who appears her stated age, placing her current pain score at 8/10 today. HEENT: Normocephalic, atraumatic. Extraocular eye muscles are intact. EXTREMITIES: No clubbing, no cyanosis, no edema. MUSCULOSKELETAL: She has pain in her right occipital area that radiates into her cervical spine with multiple trigger points identified. Cervical provocation testing is met with increased pain, but no radicular symptoms present today. Her upper extremity strength judged to be 5/5 in all major muscle groups. The patient has some tenderness in her right forehead present as well. ASSESSMENT: 1. Chronic cervical radiculopathy. 2. Cervical spondylosis with radicular symptoms. 3. Occipital neuralgia. 4. Cervicogenic headaches. 5. Chronic intractable pain. 6. Myofascial pain. 7. Opioid dependency. We reviewed the fact that opiate medications are being used to provide analgesia adequate to support activities of daily living, not attempting to achieve a specific pain score on the 0-10 Visual Analog Scale. The current opiate medications are providing sufficient analgesia to allow the patient to participate in activities of daily living. The patient is not exhibiting any aberrant behavior suggestive of drug diversion. The patient is not having any adverse reactions to medications. The patient is not suffering from daytime somnolence or mental acuity changes. The patient is managing opiate-induced constipation with appropriate gjny-cnf-iynfgtj agents and dietary considerations. The patient was counseled on concern for caution with operating a motor vehicle while using opiate medications. A physical exam was performed and the patient's functional status was evaluated. All patients with back pain were advised against the bed rest greater than 4 days and were advised to return to normal activities. Pain score assessment was noted and the treatment plan was reviewed with the patient. All current medications, both prescribed and OTC were reviewed and reconciled on the electronic medical record. Tobacco screening was accomplished and smoking cessation was advised when indicated. BMI was noted and diet/exercise modification was recommended for all patients following outside normal parameters. I reviewed with the patient today their responsibilities to [facility] [address] [place] [address] PAIN MANAGEMENT CONSULTATION Name: LEELEE ANGLIN Room #: REG [facility].#: [id number] Admission: 10/16/19 Attend Phys: Trinity Min Discharge: Date of : 58 Report #: [id number] prescription medications, reviewed their responsibility to utilize medications only as prescribed by the physician. They are to seek and receive pain medications only from 1 physician group ( [facility]). They are to use 1 pharmacy and keep the clinic informed if they change pharmacies. Their responsibilities include making followup visits in a timely fashion and to avoid abrupt discontinuation of medication usage. Their responsibilities further include bringing their medications (bottles from the pharmacy with residual pills) to the visit for possible confirmation of pill counts and the patient understands it is their responsibility to submit to random drug screens to ensure both that the medications prescribed are present, and that no other controlled substances are present. All prescriptions provided today were generated electronically. PLAN: 1. We discussed treatment options with the patient today. The patient finds her medication very beneficial in controlling most of her pain. She denies any problems with side effects of constipation or overmedication feeling. We will refill her MS Contin 15 mg, #90, for today and 4 weeks supply as well as oxycodone 7.5/325, #120. 2. She is not needing refills of her amitriptyline or Cymbalta today since they were filled for several months at her last visit. 3. 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 I encouraged the patient at the end of her shift after she is home to massage that area and see if that is beneficial and Dr. Beasley recommended acupuncture. The patient states she will use both of those methods. 4. The patient is seen in collaboration with Dr. Raj Beasley who did send her scripts electronically today. The patient will return in 2 months. <ELECTRONICALLY SIGNED> By: Trinity Min 10/17/19 0802 [id number] 1605 Trinity Min /nt
== END | disposition home or self-care (01) ==
LOC: PAIN 06:58
DX: M47.22 Other spondylosis with radiculopathy, cervical region (principal); M54.81 Occipital neuralgia; G44.89 Other headache syndrome; M79.18 Myalgia, other site; G89.29 Other chronic pain; F11.20 Opioid dependence, uncomplicated; Z79.899 Other long term (current) drug therapy

== ENCOUNTER → 2019-12-24 | Outpatient (CLI) | payer OTHER ==
[~2019-12-24] VITALS: Ht 167.6 cm; Wt 108.1 kg
[2019-12-24 12:38] VITALS: BP 144/91
--- NOTE | 2019-12-24 12:46 | NUR ---
Pain Clinic Assessment: 1. History of Osteoarthritis: HANDS NECK BACK History of Rheumatoid Arthritis: Not Applicable 2. Height: 5 ft. 6 in. 167.6 cm. Weight: 238.4 lb. oz. 108.138 kg. Patient's BMI: 38.5 3. Vital Signs: BP: 144/91 Pulse: 93 Resp: 18 Temp: 02 Sat: 95 ECG Mon: 4. Pain Intensity: 6 5. Fall Risk: Dizziness: N Needs help standing or walking: N Fallen in the last 3 months: N Fall risk comments: 6. Patient on Blood Thinner: None 7. History of Hypertension: N 8. Opioid Therapy greater than 6 weeks: Y Opiate Contract Signed: 05/10/15 9. Risk Assessment Tool Provided: MODERATE RISK 5 10. Functional Assessment Tool: 58/70 11. Recreational Drug Use: Never Drug Type: Tobacco Use: Never Smoker Tobacco Type: Amount or Packs/day: How Many Years: Alcohol Use: No Frequency: Quant:
--- NOTE | 2019-12-25 07:28 | HPC ---
[facility] [address] [place] [address] PAIN MANAGEMENT CONSULTATION Name: LEELEE ANGLIN [id number] Admission: 12/24/19 Attend Phys: Trinity Min Discharge: Date of : 58 Report #: [id number] THIS REPORT FOR: cc: FAM - Family physician unknown FAM - Family physician unknown Trinity Min ~ CC: Raj Beasley DO DATE OF SERVICE: 12/24/2019 CHIEF COMPLAINT: Neck pain, right head pain, right upper extremity pain. HISTORY OF PRESENT ILLNESS: As you know, this is a pleasant 59-year-old female who is well known to the pain clinic for her ongoing pain issues related to her neck and occipital area. At times, she does have pain that radiates into her forehead and shoulder. Today, she is rating her pain score at 6/10. This is slightly lower than it has been. 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 Since she is not doing that, she feels that her pain has been decreased. Today, she states it is a throbbing pain a 6/10. The medications as well as relaxation in a dark environment and using her spinal cord stimulator have been very beneficial. She denies any problems with ongoing constipation issues that are not managed by xpme-ckl-iovimoe medications or daytime somnolence. ALLERGIES: AMBIEN. CURRENT LIST OF MEDICATIONS: Percocet 7.5/325, morphine sulfate 15 mg 3 times a day, amitriptyline, Cymbalta, Tylenol Arthritis and multivitamin. PATIENT'S PQRS: 1. She has osteoarthritis in her hands, neck and back. Denies any rheumatoid arthritis. 2. Height is 5 feet 6 inches, weight is 238, BMI is 38. 3. Vital signs 144/91, pulse is 93, respirations 18, oxygen sat is 95. 4. Pain score is 6/10. 5. Denies dizziness, does not need help walking or standing, has not fallen in the last 3 months. 6. The patient is not on any blood thinners or medicine for hypertension. 7. Opioid therapy is greater than 6 weeks; therefore, an opioid signed contract is on the chart. Risk assessment is moderate. Functional assessment is 58/70. 8. Recreational drug use, she denies. She is not a smoker and does not drink alcohol. According to the prescription monitoring system, the patient is filling appropriately for her medications in a timely fashion. She is due to fill her [address] [address] PAIN MANAGEMENT CONSULTATION Name: LEELEE ANGLIN Room #: REG [facility] Mona#: [id number] Admission: 12/24/19 Attend Phys: Trinity Min Discharge: Date of : 58 Report #: [id number] medications this week. According to the CDC guidelines, her morphine mEq per day is 90; therefore, she is seen in our clinic every 2 months. PHYSICAL EXAMINATION: GENERAL: This is a well-developed, well-nourished, well-hydrated, exogenously obese 59-year-old female who appears her stated age, placing her current pain score at 6/10. HEENT: Normocephalic, atraumatic. Pupils equal, round and reactive to light. EXTREMITIES: No clubbing, no cyanosis, no edema. MUSCULOSKELETAL: Cervical provocation testing is met with increasing neck pain with no radicular symptoms present. Palpation of her cervical spine identifies multiple trigger points. She has upper extremity strength of 5/5, slight tenderness in her right shoulder when compared to the left. ASSESSMENT: 1. Chronic cervical radiculopathy. 2. Cervical spondylosis. 3. Occipital neuralgia. 4. Cervicogenic headaches. 5. Chronic intractable pain. 6. Opioid dependency. 7. Cervical spinal cord stimulator. We reviewed the fact that opiate medications are being used to provide analgesia adequate to support activities of daily living, not attempting to achieve a specific pain score on the 0-10 Visual Analog Scale. The current opiate medications are providing sufficient analgesia to allow the patient to participate in activities of daily living. The patient is not exhibiting any aberrant behavior suggestive of drug diversion. The patient is not having any adverse reactions to medications. The patient is not suffering from daytime somnolence or mental acuity changes. The patient is managing opiate-induced constipation with appropriate ahei-pxu-byufkjy agents and dietary considerations. The patient was counseled on concern for caution with operating a motor vehicle while using opiate medications. PLAN: 1. We discussed treatment options with the patient today. The patient finds her medications beneficial. 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 She has been busy gardening and being active outside. 2. We will send medications electronically for her MS Contin 15 mg, #90, for today and 4 weeks supply as well as oxycodone 7.5/325, #120 for today and 4 weeks supply. These will be sent electronically by Dr. Raj Beasley to her [facility] [address] [place] [address] PAIN MANAGEMENT CONSULTATION Name: LEELEE ANGLIN Room #: [facility] Mona#: [id number] Admission: 12/24/19 Attend Phys: Trinity Min Discharge: Date of : 58 Report #: [id number] [facility]. 3. The patient will return in 2 months for medication management. <ELECTRONICALLY SIGNED> By: Trinity Min 12/25/19 0728 [id number] Trinity Min /zack
== END ==
LOC: PAIN 06:56
PROVIDERS: ATTEND Clinical Nurse Specialist Adult Health
DX: M47.22 Other spondylosis with radiculopathy, cervical region (principal); M19.042 Primary osteoarthritis, left hand; M19.041 Primary osteoarthritis, right hand; F11.20 Opioid dependence, uncomplicated; Z79.899 Other long term (current) drug therapy

== ENCOUNTER → 2020-02-18 | Outpatient (CLI) | payer OTHER ==
[~2020-02-18] VITALS: Ht 167.6 cm; Wt 105.8 kg
[2020-02-18 08:40] VITALS: BP 126/82
--- NOTE | 2020-02-18 08:51 | NUR ---
Pain Clinic Assessment: 1. History of Osteoarthritis: HANDS NECK BACK History of Rheumatoid Arthritis: DENIES 2. Height: 5 ft. 6 in. 167.6 cm. Weight: 233.2 lb. oz. 105.779 kg. Patient's BMI: 37.7 3. Vital Signs: BP: 126/82 Pulse: 71 Resp: 16 Temp: 02 Sat: 97 ECG Mon: 4. Pain Intensity: 7 5. Fall Risk: Dizziness: N Needs help standing or walking: N Fallen in the last 3 months: N Fall risk comments: 6. Patient on Blood Thinner: None 7. History of Hypertension: N 8. Opioid Therapy greater than 6 weeks: Y Opiate Contract Signed: 05/10/15 9. Risk Assessment Tool Provided: MODERATE RISK 5 10. Functional Assessment Tool: 58/70 11. Recreational Drug Use: Never Drug Type: Tobacco Use: Never Smoker Tobacco Type: Amount or Packs/day: How Many Years: Alcohol Use: No Frequency: Quant:
--- NOTE | 2020-02-18 10:37 | HPC ---
[facility] [address] [place] [address] PAIN MANAGEMENT CONSULTATION Name: LEELEE ANGLIN Room #: REG [facility] Mariella.#: [id number] Admission: 02/18/20 Attend Phys: Trinity Min Discharge: Date of : 58 Report #: [id number] THIS REPORT FOR: cc: FAM - Family physician unknown FAM - Family physician unknown Trinity Min ~ CC: Raj Beasley DO DATE OF SERVICE: 02/18/2020 CHIEF COMPLAINT: Neck pain, right head pain and right upper extremity pain. HISTORY OF PRESENT ILLNESS: This is a 59-year-old female who returns to the pain clinic for followup visit for medication management. Today, she is reporting a pain score of 7/10, mostly located in her right neck and forehead. She does have a peripheral nerve stimulator that she uses at all times, which is beneficial as well as her opioid medication. She does report her pain score 7/10, which is a throbbing pain, worse with bending over and she does have photosensitivity. She reports that the medication, relaxing and using her peripheral stimulator at all times is beneficial. She denies any problems with constipation or overmedicated feeling as a result of her medications. The patient continues to have some increased stress due to her son's recent diagnosis with prostate cancer and he is undergoing [employer] treatment. She tries to be there for him, but he is very independent and not wanting much in the way of assistance from her. ALLERGIES: AMBIEN. CURRENT LIST OF MEDICATIONS: Oxycodone 7.5/325 p.r.n., morphine sulfate 15 mg t.i.d., amitriptyline 50 mg at bedtime, Cymbalta 60 mg b.i.d., multivitamin and Arthritis Tylenol. PQRS: 1. She has osteoarthritis in her hands, neck and back. Denies any rheumatoid arthritis. 2. Height is 5 feet 6 inches, weight is 233, BMI is 37. 3. Vital signs 126/82, pulse is 71, respirations 16, oxygen sat is 97%. 4. Pain score is 7/10. 5. Denies dizziness, does not need help walking or standing, has not fallen in the last 3 months. 6. The patient is not on any blood thinners or medicine for hypertension. 7. Opioid therapy is greater than 6 weeks; therefore, an opioid signed contract is on the chart. Her risk assessment is moderate. Functional assessment is 58/70. 8. Recreational drug use, she denies. She is not a [place] [address] PAIN MANAGEMENT CONSULTATION Name: LEELEE ANGLIN Room #: REG [facility].#: [id number] Admission: 02/18/20 Attend Phys: Trinity Min Discharge: Date of : 58 Report #: [id number] alcohol. According to the prescription monitoring system, the patient is due to fill her oxycodone this week. Her morphine is due next week. Her current MME is 90 MME per day; therefore, we do see her in clinic every 2 months. We will collect a random drug screen on this patient today. PHYSICAL EXAMINATION: GENERAL: This is a well-developed, well-nourished, well-hydrated, exogenous obese 59-year-old female, rating her pain at 7/10 today. HEENT: Normocephalic, atraumatic. Pupils equal, round and reactive to light. EXTREMITIES: No clubbing, no cyanosis, no edema. MUSCULOSKELETAL: Cervical provocation with increasing neck pain with no radicular symptoms noted. Deep palpation of the cervical spine causes trigger points to be identified. She does have upper extremity strength at 5/5 in all major muscle groups. ASSESSMENT: 1. Chronic cervical radiculopathy. 2. Cervical spondylosis. 3. Occipital neuralgias. 4. Cervicogenic headaches. 5. Chronic intractable pain. 6. Opioid dependency under written opioid agreement. PLAN: 1. We discussed treatment options with the patient today. Overall, she finds her medications beneficial allowing her to be as active as she would like. She does use her peripheral nerve stimulator at all times, continues her medications. She is currently not working, but is helping family members and that does keep her busy. 2. Today, we will fill her morphine sulfate 15 mg, #90, for today and 4-week supply and her oxycodone 7.5/325, #20 for today and 4-week supply. These will be sent electronically by Dr. Raj Beasley. 3. I will refill her Cymbalta 60 mg b.i.d. with 5 refills and amitriptyline 50 mg tablets, takes 1-2 at bedtime, quantity 60 with 5 additional refills. 4. The patient did provide us with some urine for a collection to check for a random drug screen. 5. The patient is seen in collaboration with Dr. Raj Beasley and will return in 2 months. <ELECTRONICALLY SIGNED> By: Trinity Min 02/18/20 1037 [id number] Trinity Min /nt
== END ==
LOC: PAIN 06:45
PROVIDERS: ATTEND Clinical Nurse Specialist Adult Health
DX: M47.22 Other spondylosis with radiculopathy, cervical region (principal); M79.641 Pain in right hand; M54.81 Occipital neuralgia; G44.89 Other headache syndrome; G89.29 Other chronic pain; F11.20 Opioid dependence, uncomplicated; Z88.8 Allergy status to other drugs, medicaments and biological substances; Z79.899 Other long term (current) drug therapy

== ENCOUNTER → 2020-04-21 | Outpatient (CLI) | payer OTHER ==
[~2020-04-21] VITALS: Ht 167.6 cm; Wt 95.3 kg
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
[2020-04-21 10:34] VITALS: BP 133/87
--- NOTE | 2020-04-21 10:42 | NUR ---
Pain Clinic Assessment: 1. History of Osteoarthritis: HANDS NECK BACK History of Rheumatoid Arthritis: DENIES 2. Height: 5 ft. 6 in. 167.6 cm. Weight: 210.0 lb. oz. 95.256 kg. Patient's BMI: 33.9 3. Vital Signs: BP: 133/87 Pulse: 75 Resp: 16 Temp: 02 Sat: 99 ECG Mon: 4. Pain Intensity: 8 5. Fall Risk: Dizziness: N Needs help standing or walking: N Fallen in the last 3 months: N Fall risk comments: 6. Patient on Blood Thinner: None 7. History of Hypertension: N 8. Opioid Therapy greater than 6 weeks: Y Opiate Contract Signed: 05/10/15 9. Risk Assessment Tool Provided: MODERATE RISK 5 10. Functional Assessment Tool: 58/70 11. Recreational Drug Use: Never Drug Type: Tobacco Use: Never Smoker Tobacco Type: Amount or Packs/day: How Many Years: Alcohol Use: No Frequency: Quant:
== END ==
LOC: PAIN 06:53
PROVIDERS: ATTEND Anesthesiology Pain Medicine
DX: M47.812 Spondylosis without myelopathy or radiculopathy, cervical region (principal); G44.89 Other headache syndrome; M54.81 Occipital neuralgia; G89.29 Other chronic pain; F11.20 Opioid dependence, uncomplicated; Z79.899 Other long term (current) drug therapy

== ENCOUNTER → 2020-06-16 | Outpatient (CLI) | payer OTHER ==
[~2020-06-16] VITALS: Ht 167.6 cm; Wt 103.9 kg
[2020-06-16 09:25] VITALS: BP 145/90
--- NOTE | 2020-06-16 09:42 | NUR ---
Document wound assessment on appropriate Wound Pressure, Monitor intervention!
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
== END ==
LOC: PAIN 06:45
PROVIDERS: ATTEND Clinical Nurse Specialist Adult Health
DX: M47.22 Other spondylosis with radiculopathy, cervical region (principal); R51.9 Headache, unspecified; M79.641 Pain in right hand; M54.81 Occipital neuralgia; F11.20 Opioid dependence, uncomplicated; G89.29 Other chronic pain; Z88.8 Allergy status to other drugs, medicaments and biological substances; Z79.899 Other long term (current) drug therapy

== ENCOUNTER → 2020-08-12 | Outpatient (CLI) | payer OTHER ==
[~2020-08-12] VITALS: Ht 167.6 cm; Wt 106.7 kg
[2020-08-12 12:54] VITALS: BP 145/90
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
== END ==
LOC: PAIN 06:56
PROVIDERS: ATTEND Clinical Nurse Specialist Adult Health
DX: M47.812 Spondylosis without myelopathy or radiculopathy, cervical region (principal); M54.81 Occipital neuralgia; F11.20 Opioid dependence, uncomplicated; R51.9 Headache, unspecified; Z88.8 Allergy status to other drugs, medicaments and biological substances; Z79.899 Other long term (current) drug therapy

== ENCOUNTER → 2020-10-07 | Outpatient (CLI) | payer OTHER ==
[~2020-10-07] VITALS: Ht 167.6 cm; Wt 107.4 kg
[2020-10-07 09:59] VITALS: BP 143/87
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
--- NOTE | 2020-10-08 08:44 | HPC ---
[facility] [address] [place] [address] PAIN MANAGEMENT CONSULTATION Name: LEELEE ANGLIN Room #: REG [facility] Mona#: [id number] Admission: 10/07/20 Attend Phys: Trinity Min Discharge: Date of : 58 Report #: [id number] THIS REPORT FOR: cc: FAM - Family physician unknown FAM - Family physician unknown Trinity Min ~ DATE OF SERVICE: 10/07/2020 CHIEF COMPLAINT: Neck pain, right head pain, and upper extremity pain. HISTORY OF PRESENT ILLNESS: This is a 59-year-old female who is very pleasant. She is returning to the pain clinic today for medication management. The patient seems more upbeat today. She reports that she is feeling better, seen a counselor regarding to some family issues she had had in the past. She reports that she has returned to her house, but occasionally does stay with her cousin. She has a temporary restraining order placed against her daughter and that makes her feel safe, so she is no longer afraid to stay by herself. Overall, she reports her pain has been well controlled, rating it a 6/10 today. She does use her occipital peripheral spinal cord stimulator at all times and utilizes her morphine and oxycodone for her ongoing head and right neck pain. She said that stress does increase her pain and since that is slowly getting better in her life, she believes her pain is better controlled. She denies any constipation or daytime somnolence as a result of her medications. ALLERGIES: AMBIEN. CURRENT LIST OF MEDICATIONS: Oxycodone 7.5/325 p.r.n., morphine sulfate 15 mg every 8 hours, Cymbalta, amitriptyline, multivitamin, and arthritis pain. PQRS: 1. She has arthritic changes in her hands, neck and back. Denies any rheumatoid arthritis. 2. Height is 5 feet 6 inches, weight is 236, BMI is 38. 3. Vital signs 142/87, pulse is 91, respirations 18, oxygen sat is 98%. 4. Pain score 6/10. 5. Denies dizziness, does not need help walking or standing, has not fallen in the last 3 months. 6. The patient is not on any blood thinners or medication for hypertension. Her opioid therapy is greater than 6 weeks; therefore, an opioid signed contract is on the chart. 7. Risk assessment is moderate. Functional assessment is 58/70. 8. Recreational drug use, she denies. She is not a smoker and does not drink alcohol. According to the prescription monitoring system, the patient is filling [address] [address] PAIN MANAGEMENT CONSULTATION Name: LEELEE ANGLIN Room #: REG [facility].#: [id number] Admission: 10/07/20 Attend Phys: Trinity Min Discharge: Date of : 58 Report #: [id number] appropriately. She is due this weekend to fill her morphine and oxycodone. Morphine milliequivalent is 90 MMEs according to the CDC guidelines. Her urine drug screen that is on the chart that is appropriate for her medications. PHYSICAL EXAMINATION: GENERAL: This is alert and orientated, well-developed, exogenously obese 59-year-old female who appears her stated age, rating her pain score at 6/10. HEENT: Normocephalic, atraumatic. Pupils equal, round and reactive to light. Speech is fluent. She is a good historian. EXTREMITIES: No clubbing, no cyanosis, no edema. MUSCULOSKELETAL: She has palpatory tenderness under her right cervical area overlying the C2-C3 facets. She has a peripheral nerve stimulator lead on the right and left side that does go to her temporal area. Upper extremity is symmetrical. Cervical provocation testing is met with increasing pain towards the right rotation and extension. ASSESSMENT: 1. Chronic cervical facet arthropathy. 2. Cervical spondylosis without radicular symptoms. 3. History of chronic cervical radiculopathy. 4. Occipital neuralgia. 5. Chronic headaches secondary to cervical spondylosis and occipital nerve involvement. 6. Chronic intractable pain. 7. Complicated medication management utilizing scheduled medications. We reviewed the fact that opiate medications are being used to provide analgesia adequate to support activities of daily living, not attempting to achieve a specific pain score on the 0-10 Visual Analog Scale. The current opiate medications are providing sufficient analgesia to allow the patient to participate in activities of daily living. The patient is not exhibiting any aberrant behavior suggestive of drug diversion. The patient is not having any adverse reactions to medications. The patient is not suffering from daytime somnolence or mental acuity changes. The patient is managing opiate-induced constipation with appropriate vbxz-xdd-erzewag agents and dietary considerations. The patient was counseled on concern for caution with operating a motor vehicle while using opiate medications. PLAN: 1. We discussed treatment options with the patient today. The patient appears more relaxed and upbeat today. She reports her home situation is slowly improving. She is looking for a job again. She is scheduled to have her COVID vaccine, but may try to have that performed here today at [facility] and is not as depressed and scared as she has been in the past. The patient reports she has one morphine prescription left at the pharmacy, but is in need of her oxycodone. We will make adjustments in her scripts today. Dr. Raj Beasley [facility] [address] [place] [address] PAIN MANAGEMENT CONSULTATION Name: LEELEE ANGLIN Room #: REG [facility] Wolff.#: [id number] Admission: 10/07/20 Attend Phys: Trinity Min Discharge: Date of : 58 Report #: [id number] will send morphine sulfate 15 mg, #90, for a 4-week release as well as two oxycodone 7.5/325, #120 scripts. This should get her back on schedule with her refills of medication every 2 months. She is not needing amitriptyline or Cymbalta filled today. Time spent in consultation reviewing recent studies and clinical notes, physical examination and correlation of findings and medical documentation to determine treatment 12 minutes. Time spent in preparation for appointment reviewing prescription monitoring, system review and previous records from her post-treatment options, reviewing current medications 5 minutes. Time spent in preparing and sending electronic prescriptions with collaborating physician, Dr. Raj Beasley, documentation of visit and plan of treatment 7 minutes. Total time spent 24 minutes. <ELECTRONICALLY SIGNED> By: Trinity Min 10/08/20 0844 1335 1351 Trinity Min /nt
== END ==
LOC: PAIN 06:51
PROVIDERS: ATTEND Clinical Nurse Specialist Adult Health
DX: M47.22 Other spondylosis with radiculopathy, cervical region (principal); M54.81 Occipital neuralgia; R51.9 Headache, unspecified; G89.4 Chronic pain syndrome; Z79.891 Long term (current) use of opiate analgesic; Z79.899 Other long term (current) drug therapy

== ENCOUNTER → 2020-12-02 | Outpatient (CLI) | payer OTHER ==
[~2020-12-02] VITALS: Ht 167.6 cm; Wt 109.7 kg
[2020-12-02 08:51] VITALS: BP 142/95
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
--- NOTE | 2020-12-03 09:09 | HPC ---
[facility] [address] [place] [address] PAIN MANAGEMENT CONSULTATION Name: LEELEE ANGLIN Room #: REG [facility]..#: [id number] Admission: 12/02/20 Attend Phys: Trinity Min Discharge: Date of : 58 Report #: [id number] THIS REPORT FOR: cc: DEBI - No family physician/PCP FAM - No family physician/PCP Trinity Min ~ DOC #: [id number] cc: DO Trinity Waldron NP DATE OF SERVICE: 12/02/2020 CHIEF COMPLAINT: Neck pain, right head pain, and upper extremity pain. HISTORY OF PRESENT ILLNESS: As you are aware, this is a pleasant 60-year-old female who returns to the pain clinic today for renewal of her opioid medications. Today, she is reporting her pain score a 4/10 in her right neck, right forehead that causes a headache. She does use her spinal cord stimulator, which is very beneficial along with her opioid medications. She describes her pain as a throbbing sensation that is worse with stressful situations as well as bending and loud noises. Today, she is wondering if she may alter how she takes her morphine and medications. She reports having increasing pain in the middle of the night that has been waking her up and is wondering about changing her morphine to take 2 at bedtime and 1 in the morning to see if this change may decrease some of this pain. The patient denies any opioid-induced constipation issues or daytime somnolence as a result of her medications. Brii reports having both her COVID vaccinations, which she is grateful for. ALLERGIES: AMBIEN. CURRENT LIST OF MEDICATIONS: Morphine sulfate 15 mg three times a day, oxycodone 7.5/325 p.r.n., Cymbalta 60 mg b.i.d., amitriptyline 50 mg at night, multivitamin and Tylenol Arthritis. PATIENT'S PQRS: 1. She has osteoarthritic changes in her hand, back, and neck. 2. Denies any rheumatoid arthritis. 3. Height is 5 feet 6 inches, weight is 241, BMI is 39. 4. Vital signs, 142/95, pulse is 88, respirations 18, oxygen sat is 97%. 5. Pain score is 4/10. 6. Complains of slight dizziness. Does not use anything for walking and has not fallen in the last 3 months. 7. The patient is not on any blood thinners or medications for hypertension. 8. Opioid therapy is greater than six weeks; therefore, an opioid signed contract is on the chart. Risk assessment is moderate. Functional assessment is 58/70. [address] [address] PAIN MANAGEMENT CONSULTATION Name: LEELEE ANGLIN Room #: REG [facility]#: [id number] Admission: 12/02/20 Attend Phys: Trinity Min Discharge: Date of : 58 Report #: [id number] 9. Recreational drug use, she denies she is not a smoker and does not drink alcohol. According to the prescription monitoring system, she is not due to fill her morphine for a few weeks due to her pharmacy not have enough supply. The patient was without for several days, but utilized her oxycodone. She is due to fill that medication this week. Her morphine mEq is 90. Therefore, we do see her on a bimonthly basis. She does have a urine drug screen on the chart that is appropriate for her medications as well. PHYSICAL EXAMINATION: GENERAL: This is alert and orientated, exogenous obese 60-year-old female who is well developed, well nourished, rating her pain score today at 4/10. She is a good historian. HEENT: Normocephalic, atraumatic. Extraocular eye muscles are intact. She is wearing a mask. MUSCULOSKELETAL: She has a peripheral nerve stimulator on the bilateral sides of her temporal area that she utilizes at all times. Upper extremity strength is symmetrical at 5/5. Cervical provocation testing is met with increasing pain greater on the right than the left. She has palpatory tenderness in her cervical spine. ASSESSMENT: 1. Chronic cervical facet arthropathy. 2. Cervical spondylosis without radicular symptoms. 3. History of cervical radiculopathy. 4. Occipital neuralgias. 5. Chronic headaches secondary to cervical spondylosis and occipital nerve implant. Peripheral nerve stimulator for her chronic intractable pain. 6. Complicated medical management utilizing scheduled opioid medications. PLAN: 1. We discussed treatment options with the patient today. The patient reports having increasing pain in the middle of the night and is wondering about altering her medication usage. We discussed attempting to take 2 morphine at night and 1 in the morning and see if this is beneficial. I encouraged her to try this for at least a week before any other changes were made and to only take amitriptyline 50 mg at this time and changing her medications. 2. If she finds the above not beneficial, I have also encouraged her to trial morphine 30 mg in the morning and 15 at night as she has been doing, but to increase her amitriptyline to 2 tablets at bedtime every night. The patient does report when she takes this on as needed basis at bedtime, she feels hungover in the morning and quite drowsy. I explained that her body does adjust this medication as she takes two every night. The patient may try both of these options and see which is most beneficial, but no actual changes in medication dosage or strength were given today. Dr. Raj Beasley will [facility] [address] [place] [address] PAIN MANAGEMENT CONSULTATION Name: LEELEE ANGLIN Room #: REG [facility].#: [id number] Admission: 12/02/20 Attend Phys: Trinity Min Discharge: Date of : 58 Report #: [id number] continue her morphine 15 mg, #90. Script sent for today and again in 4 weeks as well as oxycodone 7.5/325, #120 for today and four week supply. 3. I will continue her on her Cymbalta 60 mg b.i.d., #60 with 5 refills have been sent. No refills for amitriptyline needed at this time. 4. The patient does report that she has been feeling tired, no energy and cold during the day. I encouraged her to see her primary care doctor and have a complete checkup.She has a history of anemia, she reports not seeing any doctors in or primary care in greater than a year and a half. She does have a history of gastric bypass. The patient verbalizes understanding. She will attempt to make an appointment. Time spent in consultation, reviewing recent studies, clinical notes, physical examination, and correlation of findings and medical documentation to determine treatment options 16 minutes. Time spent in preparation for appointment, reviewing prescription monitoring system and previous records and reviewing current medication 5 minutes. Time spent preparing and sending electronic prescriptions with collaborating physician, Dr. Raj Beasley, documentation of visit and plan of treatment 5 minutes. Total time spent 26 minutes. SHIRA Alvarez/RIN <ELECTRONICALLY SIGNED> By: Trinity Min 12/03/20 0909 [id number] Trinity Min /nt
== END ==
LOC: PAIN 08:38
PROVIDERS: ATTEND Clinical Nurse Specialist Adult Health
DX: M47.812 Spondylosis without myelopathy or radiculopathy, cervical region (principal); M54.81 Occipital neuralgia; R51.9 Headache, unspecified; G89.29 Other chronic pain; F11.20 Opioid dependence, uncomplicated

== ENCOUNTER → 2021-01-05 | Outpatient (CLI) | payer OTHER ==
[~2021-01-05] VITALS: Ht 167.6 cm; Wt 110.8 kg
[2021-01-05 09:06] VITALS: BP 139/77
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
--- NOTE | 2021-01-06 07:46 | HPC ---
[facility] [place] [address] PAIN MANAGEMENT CONSULTATION Name: LEELEE ANGLIN Room #: REG [facility]..#: [id number] Admission: 01/05/21 Attend Phys: Trinity Min Discharge: Date of : 58 Report #: [id number] THIS REPORT FOR: cc: DEBI - Bambi family physician/PCP FAM - No family physician/PCP Trinity Min ~ DOC #: [id number] cc: Sarah Horowitz DO, DO Trinity Waldron, SHIRA DATE OF SERVICE: 01/05/2021 CHIEF COMPLAINT: Neck pain, right side pain and bilateral occipital pain. HISTORY OF PRESENT ILLNESS: This is a 60-year-old female who returns to the pain clinic today for renewal of her medications. Today, she is rating her pain score as quite high for her at 8/10. She reports that her spinal cord stimulator battery for her occipital nerve stimulator is no longer working. She has seen Dr. Rosario, nurse practitioner and the [employer] to verify that it has stopped working and needs a battery replacement. The patient reports the battery was last replaced in 04/2019, so she is less than 2 years of use of this battery. She is now going to consider having a rechargeable battery again, typically these last 7-8 years. Therefore, the patient's pain is increased in her occipital area that radiates into her entire head with significant throbbing, stabbing, pressure. Her pain is described as worse with stress, bending over, or any loud noises and bright lights. She is sitting here in a darkened room today, given the medications, they are beneficial, but most of her relief is from her spinal cord stimulator that is no longer working. Today, she would like renewal of her medications and is considering another trigger point injection by Dr. Beasley if she is not able to have surgery scheduled soon. ALLERGIES: AMBIEN. CURRENT LIST OF MEDICATIONS: see list that was reconcilled PQRS: 1. Oxygen sat is 95%. 2. Pain score is 8/10. 3. Denies dizziness, does not need help walking or standing, has not fallen in the last 3 months. 4. The patient is not on any blood thinners or hypertension medications. 5. Opioid therapy is greater than 6 weeks; therefore, an opioid signed contract is on the chart. Risk assessment is moderate. 6. Functional Assessment: 66/70. 7. Recreational drug use, she denies. She is not [place] [address] PAIN MANAGEMENT CONSULTATION Name: LEELEE ANGLIN Room #: REG [facility]#: [id number] Admission: 01/05/21 Attend Phys: Trinity Min Discharge: Date of : 58 Report #: [id number] alcohol. According to the prescription monitoring system, the patient is filling appropriately. Unfortunately, her medications are not synced. She is scheduled to fill her oxycodone this week and her morphine in 2 weeks. Her morphine mEq according to the CDC guidelines is 90 MME. There is a drug screen on the chart that is appropriate for her medications and we will recheck that in the near future. PHYSICAL EXAMINATION: GENERAL: This is alert and orientated 60-year-old female who appears her stated age, rating her pain score today at 8/10. She is a good historian. HEENT: Normocephalic, atraumatic. Pupils equal, round and reactive to light. Speech is fluent. She is wearing a mask. EXTREMITIES: No clubbing, no cyanosis, no edema. MUSCULOSKELETAL: There is palpatory tenderness in the right upper cervical area overlying the C2-C3 cervical facet region. Also noted tenderness in the paraspinal cervical musculature, greater on the right than the left. She has a peripheral nerve stimulator on the right. Upper extremity strength appears symmetrical 5/5. Cervical provocation testing is met with increasing pain in the right lateral rotation; rightward rotation and lateral flexion. ASSESSMENT: 1. Chronic cervical facet arthropathy. 2. Cervical spondylosis without radicular symptoms. 3. History of cervical radiculopathy. 4. Occipital neuralgias. 5. Chronic headaches secondary to cervical spondylosis and occipital nerve pain. 6. Chronic intractable pain. 7. Opioid dependency under written opioid agreement. We reviewed the fact that opiate medications are being used to provide analgesia adequate to support activities of daily living, not attempting to achieve a specific pain score on the 0-10 Visual Analog Scale. The current opiate medications are providing sufficient analgesia to allow the patient to participate in activities of daily living. The patient is not exhibiting any aberrant behavior suggestive of drug diversion. The patient is not having any adverse reactions to medications. The patient is not suffering from daytime somnolence or mental acuity changes. The patient is managing opiate-induced constipation with appropriate [id number] agents and dietary considerations. The patient was counseled on concern for caution with operating a motor vehicle while using opiate medications. A physical exam was performed and the patient's functional status was evaluated. All patients with back pain were advised against the bed rest greater than [address] [address] PAIN MANAGEMENT CONSULTATION Name: LEELEE ANGLIN Room #: REG [facility]#: [id number] Admission: 01/05/21 Attend Phys: Trinity Min Discharge: Date of : 58 Report #: [id number] days and were advised to return to normal activities. Pain score assessment was noted and the treatment plan was reviewed with the patient. All current medications, both prescribed and OTC were reviewed and reconciled on the electronic medical record. Tobacco screening was accomplished and smoking cessation was advised when indicated. BMI was noted and diet/exercise modification was recommended for all patients following outside normal parameters. I reviewed with the patient today their responsibilities to safeguard prescription medications, reviewed their responsibility to utilize medications only as prescribed by the physician. They are to seek and receive pain medications only from 1 physician group ( [facility]). They are to use 1 pharmacy and keep the clinic informed if they change pharmacies. Their responsibilities include making followup visits in a timely fashion and to avoid abrupt discontinuation of medication usage. Their responsibilities further include bringing their medications (bottles from the pharmacy with residual pills) to the visit for possible confirmation of pill counts and the patient understands it is their responsibility to submit to random drug screens to ensure both that the medications prescribed are present, and that no other controlled substances are present. All prescriptions provided today were generated electronically. PLAN: 1. We discussed treatment options with the patient today. Unfortunately, her occipital nerve stimulator that she receives much relief from, batteries are no longer working. She is awaiting a surgical date. She is unsure when that will be. She has been calling the office to see where the preauthorization process is. In the meantime, she has significant occipital pain radiating towards her temporal area. In the past when her pain has been increased, Dr. Raj Beasley has performed trigger point injections that have been beneficial in helping reduce some of her flares. She is considering that procedure. I instructed the patient to first call to see if she has a surgical date; if it is greater than 2 weeks, then I have encouraged her to call back and schedule an appointment with Dr. Beasley for her trigger point injections. 2. In the meantime, we will continue her on her morphine sulfate 15 mg t.i.d. and oxycodone 7.5/325, #120. These medications will be sent electronically for [address] Raj Beasley. 3. I will continue her on her amitriptyline 50 mg. The patient takes 1-2 at bedtime, quantity #60 with 5 additional refills will be sent. The patient does also continue to take her Cymbalta, though no refills of that medication are needed today. 4. The patient will follow up with us in 2 months or greater if she needs an injection. Time spent with the patient in consultation, reviewing pertinent imaging and recent studies and clinical notes and physician reports, [place] [id number] PAIN MANAGEMENT CONSULTATION Name: LEELEE ANGLIN STEPHAN Room #: REG [facility]#: [id number] Admission: 01/05/21 Attend Phys: Trinity Min Discharge: Date of : 58 Report #: [id number] and correlation of findings, medical documentation and determine possible treatment options - 16 minutes. Time spent preparing for appointment reviewing prescription monitoring system reports, reviewing previous records and treatment options and reviewing current medications - 5 minutes. Time spent reviewing in preparing and sending electronic prescriptions with collaborating physician, Dr. Raj Beasley and documentation of visit and plan of treatment - 5 minutes. Total time spent - 26 minutes. SHIRA Alvarez/ALBERT/BRUNO <ELECTRONICALLY SIGNED> By: Trinity Min 01/06/21 0746 [id number] 13 Trinity Min /nt
== END ==
LOC: PAIN 06:45
PROVIDERS: ATTEND Clinical Nurse Specialist Adult Health
DX: M47.22 Other spondylosis with radiculopathy, cervical region (principal); M54.81 Occipital neuralgia; R51.9 Headache, unspecified; G89.29 Other chronic pain; Z79.899 Other long term (current) drug therapy; Z79.891 Long term (current) use of opiate analgesic

== ENCOUNTER → 2021-03-02 | Outpatient (CLI) | payer OTHER ==
[~2021-03-02] VITALS: Ht 167.6 cm; Wt 108.8 kg
[2021-03-02 09:19] VITALS: BP 137/76
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
--- NOTE | 2021-03-02 10:02 | NUR ---
INFORMED PROVIDER OF PTS INCREASED CONCERN WITH DEPRESSION, IS NAZ ON ANTIDEPRESSANT, PT STATES SHE IS NOT HAVING ANY THOUGHTS OF HURTING HERSELF OR OTHERS, IS SAD BECASUE SHE HAS A NEICE IN THE HOSPITAL WITH [place]. PROVIDER INFORMED OF PTS ON AND OFF DIZZINESS SINCE HER BATTERY WAS REPLACED ON HER STIMULATOR AND IT IMPROVES WHEN SHE TURNS THE POWER LEVEL DOWN. FALL RISK BAND PLACED ON PT.
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
== END ==
LOC: PAIN 07:07
PROVIDERS: ATTEND Clinical Nurse Specialist Adult Health
DX: M47.22 Other spondylosis with radiculopathy, cervical region (principal); M54.81 Occipital neuralgia; R51.9 Headache, unspecified; G89.29 Other chronic pain; Z79.891 Long term (current) use of opiate analgesic; Z96.82 Presence of neurostimulator; Z79.899 Other long term (current) drug therapy

== ENCOUNTER → 2021-04-27 | Outpatient (CLI) | payer OTHER ==
[~2021-04-27] VITALS: Ht 167.6 cm; Wt 109.0 kg
[2021-04-27 10:47] VITALS: BP 127/88
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
== END ==
LOC: PAIN 06:56
PROVIDERS: ATTEND Anesthesiology Pain Medicine
DX: M47.22 Other spondylosis with radiculopathy, cervical region (principal); M54.81 Occipital neuralgia; R51.9 Headache, unspecified; F11.20 Opioid dependence, uncomplicated

== ENCOUNTER → 2021-06-23 | Outpatient (CLI) | payer OTHER ==
[~2021-06-23] VITALS: Ht 167.6 cm; Wt 110.2 kg
[2021-06-23 10:54] VITALS: BP 156/101
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
== END ==
LOC: PAIN 08:21
PROVIDERS: ATTEND Clinical Nurse Specialist Adult Health
DX: M54.81 Occipital neuralgia (principal); M47.22 Other spondylosis with radiculopathy, cervical region; R51.9 Headache, unspecified; F11.20 Opioid dependence, uncomplicated; Z88.8 Allergy status to other drugs, medicaments and biological substances; Z79.899 Other long term (current) drug therapy

== ENCOUNTER → 2021-08-24 | Outpatient (CLI) | payer OTHER ==
[~2021-08-24] VITALS: Ht 167.6 cm; Wt 112.6 kg
[2021-08-24 08:16] VITALS: BP 126/86
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
== END ==
LOC: PAIN 08-17 08:57
PROVIDERS: ATTEND Clinical Nurse Specialist Adult Health
DX: M47.22 Other spondylosis with radiculopathy, cervical region (principal); M54.81 Occipital neuralgia; R51.9 Headache, unspecified; F11.20 Opioid dependence, uncomplicated; G89.29 Other chronic pain; Z79.899 Other long term (current) drug therapy; Z88.8 Allergy status to other drugs, medicaments and biological substances